=== PATIENT | male | born 1940 | race Caucasian/White ===

== ENCOUNTER 2016-07-24 05:49 | Day surgery (SDC) | payer MEDICARE, OTHER ==
[2016-07-24] VITALS (29 sets, daily range): BP systolic 132–187; BP diastolic 64–90; PULSE 16–117; RESP 6–22; TEMP 97–98.1; O2SAT 94–100; Ht 180.3 cm; Wt 104.5 kg
[~2016-07-24] VITALS: Ht 180.3 cm; Wt 104.5 kg
[~2016-07-24 05:49] MED LIST: ALCL15CR TOP; AMLO2.5T PO; AMOX500C2 PO; LOSA100T44 PO; SAW450CA4 PO; WARF3TAB6 PO
--- OUTSIDE RECORDS SUMMARY | 2016-07-24 05:54 | XMS REPORT | Summary of Care ---
Author Author Noé Hayward M.D. Organization Unknown Address [address] [place], [place] [id number] Phone Unavailable Care Team Providers Care Litigation Claim Representative Name Role Phone David Hayward M.D. Unavailable Unavailable Temi Mario, Patrizia Unavailable Unavailable Noé Hayward PP Unavailable Unavailable Unavailable Functional Status Functional Status Health Issues* Name Dates Details Functional status health issues are not documented Status: Cognitive Status Health Issues* Name Dates Details Cognitive status health issues are not documented Status: Problems Name Dates Details Pulmonary embolism (415.19, I26.99) Status: Active Chronic night sweats (780.8, R61) Status: Active Hyperlipidemia (272.4, E78.5) Status: Active Anticoagulant long-term use (V58.61, Z79.01) Status: Active Seborrheic keratosis (702.19, L82.1) Status: Active Seborrheic dermatitis (690.10, L21.9) Status: Active Former smoker (V15.82, Z87.891) Status: Active Congestive heart failure (428.0, I50.9) Status: Active Medications Name Dates Details Warfarin Sodium 3 MG Oral Tablet one tablet tue,thur,sat,sun along with 5 mg tablet Quantity: 51 Noé Hayward M.D.* Started 10-Dec-2007 ActiveWarfarin Sodium 5 MG Oral Tablet 8 MG MON,WED,FRI 7 MG ALL OTHER DAYS * Quantity: 90 Refills: 3 Noé Hayward M.D.* Started 10-Dec-2007 ActiveWarfarin Sodium 2 MG Oral Tablet take 1 tablet mon,wed,fri along with 5 mg tablet * Quantity: 39 Refills: 5 Noé Hayward M.D.* Started 31-Dec-2013 ActiveAlclometasone Dipropionate 0.05 % External Cream APPLY SPARINGLY TO AREAS ON FACE AND ON CHEST TWICE DAILY TIL CLEARS AND THEN USE NEEDED * Quantity: 1 Refills: 1 Patric Membreno M.D.* Started 3-Oct-2014 [id number] GM Tube Lisinopril 20 MG Oral Tablet take one tablet by mouth every day * Quantity: 90 Refills: 4 Noé Hayward M.D.* Started 16-Aug-2015 Active Allergies and Adverse Reactions Name Dates Details Penicillins Status: Active Past Medical History Name Dates Details History of Pre-procedural examination (V72.84, Z01.818) Status: Resolved Procedures Procedure Dates Details PROTIME PANEL 7000 Ordered:16-Aug-2015 Immunization Name Dates Details Immunizations not documented Social History Name Dates Details Smoking Status* Former smoker Vital Signs Date Test Result Details 31-Aug-2015 10:25 BP Systolic 142 mm[Hg] Status: BP Diastolic 70 mm[Hg] Status: Heart Rate 109 /min Status: Weight 230 lb Status: O2 SAT 95 % Status: Body Mass Index Calculated 31.19 kg/m2 Status: Body Surface Area Calculated 2.26 m2 Status: 16-Aug-2015 08:55 BP Systolic 184 mm[Hg] Status: BP Diastolic 82 mm[Hg] Status: Heart Rate 112 /min Status: Weight 232 lb Status: O2 SAT 95 % Status: Body Mass Index Calculated 31.47 kg/m2 Status: Body Surface Area Calculated 2.27 m2 Status: Results Date Description Value Details 12-Aug-2015 08:19 CBC w/ Auto Diff 7150 Comments: Items were attached to this order: Extra Tube Fastin hours WBC 6.2 K/uL (Better) Range: 4.5-11.0 RBC 4.63 mil/uL (Better) Range: 4.20-5.40 HGB 14.5 g/dL (Better) Range: 14.0-18.0 HCT 43.5 % (Better) Range: 42.0-53.0 MCV 93.9 fL (Better) Range: 80.0-99.0 MCH 31.3 pg (Better) Range: 27.3-32.5 MCHC 33.3 % (Better) Range: 32.0-36.0 RDW 13.2 % (Better) Range: 11.6-14.8 PLATELETS 231 K/uL (Better) Range: 150-400 MPV 6.9 fL (Better) Range: 6.0-11.0 %NEUTRO 55.2 % (Better) Range: 37.0-80.0 %LYMPHS 32.6 % (Better) Range: 13.0-50.0 %MONO 5.6 % (Better) Range: 0.0-12.0 %EOS 3.4 % (Better) Range: 0.0-7.0 %BASO 0.4 % (Better) Range: 0.0-2.5 %MELISSA 2.7 % (Better) Range: 0.0-5.0 NEUTRO 3.4 K/uL (Better) Range: 2.0-6.9 LYMPHS 2.0 K/uL (Better) Range: 0.6-3.4 MONOS 0.4 K/uL (Better) Range: 0.0-0.9 EOS 0.2 K/uL (Better) Range: 0.0-0.7 BASO 0.0 K/uL (Better) Range: 0.0-0.2 08:28 Comprehensive Metabolic Panel 1212 Comments: Items were attached to this order: Extra Tube Fastin hours SODIUM 140 mmol/L (Better) Range: 133-144 POTASSIUM 4.1 mmol/L (Better) Range: 3.5-5.1 CHLORIDE 105 mmol/L (Better) Range: 98-110 CARBON DIOXIDE 26.0 mmol/L (Better) Range: 23.0-33.0 ANION GAP 9 mmol/L (Better) Range: 6-16 BUN 14 mg/dL (Better) Range: 7-18 CREATININE, SERUM 0.86 mg/dL (Better) Range: 0.70-1.30 Comments: Please note new reference ranges effective 2014.----- BUN:CREATININE RATIO 16 (Better) EST GFR, >60 ml/min (Better) Range: >60 EST GFR, NON-AFR SALV[place]OREAN >60 ml/min (Better) Range: >60 Comments: EST GFR is reported in ml/min per 1.73 m2 of body surface area. For -Belarusian, please multiple result by 1.2.----- GLUCOSE 97 mg/dL (Better) Range: 70-100 ALK PHOSPHATASE 69 U/L (Better) Range: 46-116 TOTAL BILIRUBIN 0.30 mg/dL (Better) Range: 0.20-1.00 AST 18 U/L (Better) Range: 8-35 ALT 26 U/L (Better) Range: 16-63 Comments: Please note new reference ranges. Effective 07/08/2014.----- ALBUMIN 3.5 g/dL (Better) Range: 3.4-5.0 TOTAL PROTEIN 6.9 g/dL (Better) Range: 6.4-8.2 A/G RATIO 1.0 units (Better) Range: 1.0-1.8 CALCIUM 8.6 mg/dL (Better) Range: 8.5-10.1 08:28 LIPID PROFILE 1184 Comments: Items were attached to this order: Extra Tube Fastin hours CHOLESTEROL 228 mg/dL (Above high threshold) Range: <200 TRIGLYCERIDES 121 mg/dL (Better) Range: 30-200 HDL Cholesterol 40 mg/dL (Better) Range: >39 NON HDL CHOLESTEROL 188 (Better) CARDIAC RSK FACTOR 5.7 units (Above high threshold) Range: 4.4-5.0 LDL - CALCULATED 164 mg/dL (Above high threshold) Range: 0-130 16-Aug-2015 10:43 XRay CHEST-PA & LAT Comments: Exam Date: 08/16/2015 09 :46Dictation Date: 08/16/2015 10:43 X CHEST PA & LAT (Better) 10:47 PROTIME PANEL 7000 PROTIME 31.1 secs (Above high threshold) Range: 12.0-14.9 INR 2.97 (Better) 10:54 BNP 3103 BNP 9.2 pg/mL (Better) Range: 0.0-100.0 Plan of Care Planned Observations* Name Dates Details Planned Goals not documented Goal Planned Encounters* Appointment; Provider: Noé Hayward On 06-Mar-2016 10:30 * Appointment; Provider: Patric Membreno On 07-Feb-2016 08:30 Instructions * Instructions not documented Encounters Appointment; Noé Hayward Encounter Diagnosis: Problem not documented On 31-Aug-2015 10:30 Appointment; Noé Hayward Encounter Diagnosis: Problem not documented On 16-Aug-2015 09:00 Appointment; Patric Membreno Encounter Diagnosis: Problem not documented On 01-Feb-2015 08:30 Appointment; Vish Pettit Encounter Diagnosis: Problem not documented On 31-Dec-2014 10:00 Appointment; Tejal Alvarenga Encounter Diagnosis: Problem not documented On 31-Dec-2014 09:30 Appointment; Noé Hayward Encounter Diagnosis: Problem not documented On 14-Dec-2014 09:15 Appointment; Noé Hayward Encounter Diagnosis: Problem not documented On 03-Sep-2014 09:15 Appointment; Patric Membreno Encounter Diagnosis: Problem not documented On 28-Jan-2014 11:30 Appointment; Noé Hayward Encounter Diagnosis: Problem not documented On 28-Jan-2014 09:15 Appointment; Rachelle Sanchez Encounter Diagnosis: Problem not documented On 08-Dec-2013 13:15 Appointment; Noé Hayward Encounter Diagnosis: Problem not documented On 18-Sep-2013 14:45
--- OUTSIDE RECORDS SUMMARY | 2016-07-24 05:54 | XMS REPORT | Summary of Care ---
Author Author Noé Hayward M.D. Organization Unknown Address [address] [place], [place] [id number] Phone Unavailable Care Team Providers Care Ballast Regulator Operator Name Role Phone David Hayward M.D. Unavailable Unavailable Patrizia Membreno M.D. Unavailable Unavailable Noé Hayward PP Unavailable Unavailable Unavailable Functional Status Functional Status Health Issues* Name Dates Details Functional status health issues are not documented Status: Cognitive Status Health Issues* Name Dates Details Cognitive status health issues are not documented Status: Problems Name Dates Details Pain in wrist joint (719.43, M25.539) Status: Active Pulmonary embolism (415.19, I26.99) Status: Active Encounter for general health examination (V70.0, Z00.00) Status: Active Chronic night sweats (780.8, R61) Status: Active Pain in joint of left knee (719.46, M25.562) Status: Active Pre-procedural examination (V72.84, Z01.818) Status: Active Preop examination (V72.84, Z01.818) Status: Active Seborrheic keratosis (702.19, L82.1) Status: Active Seborrheic dermatitis (690.10, L21.9) Status: Active Hyperlipidemia (272.4, E78.5) Status: Active Anticoagulant long-term use (V58.61, Z79.01) Status: Active Fever (780.60, R50.9) Status: Active Excessive sweating (780.8, R61) Status: Active Medications Name Dates Details Coumadin 3 MG Oral Tablet Noé Hayward M.D.* Started 10-Dec-2007 ActiveCoumadin 5 MG Oral Tablet * Refills: 0 Noé Hayward M.D.* Started 10-Dec-2007 ActiveWarfarin Sodium 1 MG Oral Tablet TAKE DIRECTED. * Quantity: 90 Refills: 3 Noé Hayward M.D.* Started 31-Dec-2013 ActiveAlclometasone Dipropionate 0.05 % External Cream APPLY SPARINGLY TO AREAS ON FACE AND ON CHEST TWICE DAILY TIL CLEARS AND THEN USE NEEDED * Quantity: 1 Refills: 1 Patric Membreno M.D.* Started 29-Jan-2014 [id number] GM Tube Allergies and Adverse Reactions Name Dates Details Penicillins Status: Active Procedures Procedure Dates Details PROTIME PANEL 7000 Ordered: Immunization Name Dates Details Immunizations not documented Social History Name Dates Details Smoking Status* Former smoker Vital Signs Date Test Result Details No Known Vitals to report Results Date Description Value Details 09:41 PROTIME PANEL 7000 PROTIME 23.4 secs (Above high threshold) Range: 12.0-14.9 INR 2.13 (Better) Plan of Care Planned Observations* Name Dates Details Planned Goals not documented Goal Planned Encounters* Appointment; Provider: Patric Membreno On 01-Feb-2015 08:30 * Appointment; Provider: Noé aHyward On 14-Dec-2014 09:15 Instructions * Instructions not documented Encounters Appointment; Noé Hayward Encounter Diagnosis: Problem not documented On 03-Sep-2014 09:15 Appointment; Patric Membreno Encounter Diagnosis: Problem not documented On 28-Jan-2014 11:30 Appointment; Noé Hayward Encounter Diagnosis: Problem not documented On 28-Jan-2014 09:15 Appointment; Rachelle Sanchez Encounter Diagnosis: Problem not documented On 08-Dec-2013 13:15 Appointment; Noé Hayward Encounter Diagnosis: Problem not documented On 18-Sep-2013 14:45 Appointment; Noé Hayward Encounter Diagnosis: Problem not documented On 20-Aug-2013 09:15 Appointment; Law Newberry Encounter Diagnosis: Problem not documented On 29-Jul-2013 11:00 Appointment; Noé Hayward Encounter Diagnosis: Problem not documented On 10-Feb-2013 09:30
--- OUTSIDE RECORDS SUMMARY | 2016-07-24 05:54 | XMS REPORT | Summary of Care ---
Author Author Noé Hayward M.D. Organization Unknown Address [address] [place], [place] [id number] Phone Unavailable Care Team Providers Care Fx Artist Name Role Phone David Hayward M.D. Unavailable [...] Status: Active Hyperlipidemia (272.4, E78.5) Status: Active Fever (780.60, R50.9) Status: Active Excessive sweating (780.8, R61) Status: Active Encounter for screening colonoscopy (V76.51, Z12.11) Status: Active Anticoagulant long-term use (V58.61, Z79.01) Status: Active Medications Name Dates Details Coumadin [...] Refills: 1 Patric Membreno M.D.* Started 29-Jan-2014 [id number] GM Tube Allergies and Adverse Reactions Name Dates Details Penicillins Status: Active Procedures Procedure Dates Details Colonoscopy- Screening or Dx Pendin14-Dec-2014 Immunization Name Dates Details Immunizations not documented Social History Name Dates Details Smoking Status* Former smoker Vital Signs Date Test Result Details 14-Dec-2014 09:00 BP Systolic 134 mm[Hg] Status: BP Diastolic 86 mm[Hg] Status: Heart Rate 98 /min Status: Weight 228.5 lb Status: O2 SAT 94 % Status: Body Mass Index Calculated 30.99 kg/m2 Status: Body Surface Area Calculated 2.25 m2 Status: Results Date Description Value Details 13-Dec-2014 08:22 CBC w/ Auto Diff 7150 Comments: Fastin hours WBC 8.0 K/uL (Better) Range: 4.5-11.0 RBC 4.80 mil/uL (Better) Range: 4.20-5.40 HGB 14.8 g/dL (Better) Range: 14.0-18.0 HCT 43.8 % (Better) Range: 42.0-53.0 MCV 91.3 fL (Better) Range: 80.0-99.0 MCH 30.9 pg (Better) Range: 27.3-32.5 MCHC 33.9 % (Better) Range: 32.0-36.0 RDW 13.2 % (Better) Range: 11.6-14.8 PLATELETS 200 K/uL (Better) Range: 150-400 MPV 7.9 fL (Better) Range: 6.0-11.0 %NEUTRO 51.8 % (Better) Range: 37.0-80.0 %LYMPHS 33.1 % (Better) Range: 13.0-50.0 %MONO 7.2 % (Better) Range: 0.0-12.0 %EOS 4.4 % (Better) Range: 0.0-7.0 %BASO 0.9 % (Better) Range: 0.0-2.5 %MELISSA 2.7 % (Better) Range: 0.0-5.0 NEUTRO 4.1 K/uL (Better) Range: 2.0-6.9 LYMPHS 2.7 K/uL (Better) Range: 0.6-3.4 MONOS 0.6 K/uL (Better) Range: 0.0-0.9 EOS 0.4 K/uL (Better) Range: 0.0-0.7 BASO 0.1 K/uL (Better) Range: 0.0-0.2 08:44 PROTIME PANEL 7000 Comments: Fastin hours PROTIME 24.4 secs (Above high threshold) Range: 12.0-14.9 INR 2.24 (Better) 08:53 LIPID PROFILE 1184 Comments: Fastin hours CHOLESTEROL 211 mg/dL (Above high threshold) Range: <200 TRIGLYCERIDES 101 mg/dL (Better) Range: 30-200 HDL Cholesterol 38 mg/dL (Below low threshold) Range: >39 NON HDL CHOLESTEROL 173 (Better) CARDIAC RSK FACTOR 5.6 units (Above high threshold) Range: 4.4-5.0 LDL - CALCULATED 153 mg/dL (Above high threshold) Range: 0-130 08:53 Comprehensive Metabolic Panel 1212 Comments: Fastin hours SODIUM 142 mmol/L (Better) Range: 133-144 POTASSIUM 4.1 mmol/L (Better) Range: 3.5-5.1 CHLORIDE 105 mmol/L (Better) Range: 98-110 CARBON DIOXIDE 26.3 mmol/L (Better) Range: 23.0-33.0 ANION GAP 11 mmol/L (Better) Range: 6-16 BUN 21 mg/dL (Above high threshold) Range: 7-18 CREATININE, SERUM 0.90 mg/dL (Better) Range: 0.70-1.30 Comments: Please note new reference ranges effective 2014.----- BUN:CREATININE RATIO 23 (Better) EST GFR, >60 ml/min (Better) Range: >60 EST GFR, NON-AFR CROATIAN >60 ml/min (Better) Range: >60 Comments: EST GFR is reported in ml/min per 1.73 m2 of body surface area. For -Kyrgyz, please multiple result by 1.2.----- GLUCOSE 97 mg/dL (Better) Range: 70-100 ALK PHOSPHATASE 66 U/L (Better) Range: 46-116 TOTAL BILIRUBIN 0.40 mg/dL (Better) Range: 0.20-1.00 AST 19 U/L (Better) Range: 8-35 ALT 31 U/L (Better) Range: 16-63 Comments: Please note new reference ranges. Effective 07/08/2014.----- ALBUMIN 3.6 g/dL (Better) Range: 3.4-5.0 TOTAL PROTEIN 6.7 g/dL (Better) Range: 6.4-8.2 A/G RATIO 1.2 units (Better) Range: 1.0-1.8 CALCIUM 8.6 mg/dL (Better) Range: 8.5-10.1 09:12 VITAMIN B12 3606 Comments: Fastin hours VITAMIN B12 707 pg/mL (Better) Range: 211-911 Plan of Care Planned Observations* Name Dates Details Planned Goals not documented Goal Planned Encounters* Appointment; Provider: Noé Hayward On 16-Aug-2015 09:00 * Appointment; Provider: Patric Membreno On 01-Feb-2015 08:30 Instructions * Instructions not documented Encounters [...]
--- OUTSIDE RECORDS SUMMARY | 2016-07-24 05:54 | XMS REPORT | Summary of Care ---
Author Author Wilver Mario, [facility] Unknown Address [address] [facility] [place], [place] [phone] Phone Unavailable Care Team Providers Care Mobile Application Engineer Name Role Phone Mainor Mario, David Unavailable Unavailable Patrizia Membreno M.D. Unavailable Unavailable [...] Congestive heart failure (428.0, I50.9) Status: Active Dysphagia, unspecified (787.20, R13.10) Status: Active Allergic rhinitis (477.9, J30.9) Status: Active Preop examination (V72.84, Z01.818) Status: Active Hypertension (401.9, I10) Status: Active Medications Name Dates Details Warfarin [...] Refills: 1 Patric Membreno M.D.* Started 29-Jan-2014 [id number] GM Tube Losartan Potassium 100 MG Oral Tablet TAKE ONE AND ONE-HALF TABLETS DAILY (150MG) * Quantity: 135 Refills: 0 Noé Hayward M.D.* Started Active Allergies and Adverse Reactions Name Dates Details Penicillins Status: Active Past Medical History Name Dates Details History of Pre-procedural examination (V72.84, Z01.818) Status: Resolved Procedures Procedure Dates Details Upper Endoscopy ( EGD) Ordered: PROTIME PANEL 7000 Ordered: Immunization Name Dates Details Immunizations not documented Social History Name Dates Details Smoking Status* Former smoker Vital Signs Date Test Result Details 10:18 BP Systolic 142 mm[Hg] Status: BP Diastolic 76 mm[Hg] Status: Heart Rate 92 /min Status: Weight 230 lb Status: O2 SAT 95 % Status: Body Mass Index Calculated 31.19 kg/m2 Status: Body Surface Area Calculated 2.26 m2 Status: Results Date Description Value Details 09:10 ESOPHAGUS/ BARIUM SWALLOW Comments: Exam Date: 2015 08:43Dictation Date: 10/14/2015 09:10 XF ESOPHAGUS (Better) Plan of Care Planned Observations* Name Dates Details Planned Goals not documented Goal Planned Encounters* Appointment; Provider: Noé Hayward On 06-Mar-2016 10:30 * Appointment; Provider: Patric Membreno On 07-Feb-2016 08:30 * Appointment; Provider: Vish Pettit On 09:00 * Appointment; Provider: Tejal Alvarenga On 08:30 * Appointment; Provider: Schedule Radiology On 09:00 Instructions * Instructions not documented Encounters Appointment; Noé Hayward Encounter Diagnosis: Problem not documented On 10:30 Appointment; Noé Hayward Encounter Diagnosis: Problem [...]
--- OUTSIDE RECORDS SUMMARY | 2016-07-24 05:54 | XMS REPORT | Summary of Care ---
Author Author Noé Hayward M.D. Organization Unknown Address [address] [place], [place] [id number] Phone Unavailable Care Team Providers Care Tractor Drill Operator Name Role Phone David Hayward M.D. [...] Refills: 1 Patric Membreno M.D.* Started 3-Oct-2014 [id number] GM Tube Lisinopril 20 MG Oral Tablet [...] ml/min (Better) Range: >60 EST GFR, NON-AFR [place]IAN >60 ml/min (Better) Range: >60 Comments: EST GFR is reported in ml/min per 1.73 m2 of body surface area. For -Egyptian, please multiple result by 1.2.----- GLUCOSE 97 [...]
--- OUTSIDE RECORDS SUMMARY | 2016-07-24 05:54 | XMS REPORT | Summary of Care ---
Author Author Jessee Campbell Organization Unknown Address [address] [place], [place] [id number] Phone Unavailable Care Team Providers Care Boiler Control Room Operator Name Role Phone David Hayward M.D. Unavailable Unavailable Jessee Campbell Unavailable Unavailable Patrizia Membreno M.D. Unavailable Unavailable Noé Hayward Unavailable Unavailable Unavailable Functional Status Name Dates Details Functional status health issues are not documented Status: Name Dates Details Cognitive status health issues [...] Congestive heart failure (428.0, I50.9) Status: Active Allergic rhinitis (477.9, J30.9) Status: Active Preop examination (V72.84, Z01.818) Status: Active Hypertension (401.9, I10) Status: Active Dysphagia, unspecified (787.20, R13.10) Status: Active Medications Name Dates Details Warfarin Sodium 3 MG Oral Tablet one tablet tue,thur,sat,sun along with 5 mg tablet Quantity: 51 Crater M.D., Noé A * Start 10-Dec-2007 Active Warfarin Sodium 5 MG Oral Tablet 8 MG MON,WED,FRI 7 MG ALL OTHER DAYS * Quantity: 90 Refills: 3 Crater M.D., Noé A * Start 10-Dec-2007 Active Warfarin Sodium 2 MG Oral Tablet take 1 tablet mon,wed,fri along with 5 mg tablet * Quantity: 39 Refills: 5 Crater M.D., Noé A * Start 31-Dec-2013 Active Alclometasone Dipropionate 0.05 % External Cream APPLY SPARINGLY TO AREAS ON FACE AND ON CHEST TWICE DAILY TIL CLEARS AND THEN USE NEEDED * Quantity: 1 Refills: 1 Patric Membreno M.D. Start 29-Jan-2014 Active 45 GM Tube Losartan Potassium 100 MG Oral Tablet TAKE ONE AND ONE-HALF TABLETS DAILY (150MG) * Quantity: 135 Refills: 0 Noé Hayward M.D. Start Active Allergies and Adverse Reactions Name Dates Details Penicillins (Allergy) Status: Active Past Medical History Name Dates Details History of Pre-procedural examination (V72.84, Z01.818) Status: Resolved Procedures Procedure Dates Details Procedures not documented Immunization Name Dates Details Immunizations not documented Family History Name Dates Details No pertinent family history Status: Active Social History Name Dates Details - Status: Name Dates Details Former smoker Vital Signs Date Test Result Details 10:12 BP Systolic 133 mm[Hg] Status: Comments: Location: ; Position: BP Diastolic 70 mm[Hg] Status: Comments: Location: ; Position: Heart Rate 76 /min Status: Comments: Location: ; Physical Findings 18 Status: Comments: Respiration Height 72 in Status: Weight 225 lb Status: Physical Findings 96 Status: Comments: O2 Saturation Body Mass Index Calculated 30.52 kg/m2 Status: Body Surface Area Calculated 2.24 m2 Status: Results Date Description Value Details Results not documented Plan of Care Name Dates Details Planned Observations Planned Goals not documented Planned Encounters Appointment; Provider: Noé Hayward M.D. On 06-Mar-2016 10:30 Appointment; Provider: Patric Membreno M.D. On 07-Feb-2016 08:30 Instructions Name Dates Details Instructions not documented Encounters Appointment; Vish Pettit M.D. Encounter Diagnosis: Problem not documented On 09:00 Appointment; Tejal Alvarenga Encounter Diagnosis: Problem not documented On 08:30 Appointment; Noé Hayward M.D. Encounter Diagnosis: Problem not documented On 10:30 Appointment; Noé Hayward M.D. Encounter Diagnosis: Problem not documented On 31-Aug-2015 10:30 Appointment; Noé Hayward M.D. Encounter Diagnosis: Problem not documented On 16-Aug-2015 09:00 Appointment; Patric Membreno M.D. Encounter Diagnosis: Problem not documented On 01-Feb-2015 08:30 Appointment; Vish Pettit M.D. Encounter Diagnosis: Problem not documented On 31-Dec-2014 10:00 Appointment; Tejal Alvarenga Encounter Diagnosis: Problem not documented On 31-Dec-2014 09:30 Appointment; Noé Hayward M.D. Encounter Diagnosis: Problem not documented On 14-Dec-2014 09:15 Appointment; Noé Hayward M.D. Encounter Diagnosis: Problem not documented On 03-Sep-2014 09:15 Appointment; Patric Membreno M.D. Encounter Diagnosis: Problem not documented On 28-Jan-2014 11:30 Appointment; Noé Hayward M.D. Encounter Diagnosis: Problem not documented On 28-Jan-2014 09:15 Appointment; Rachelle Sanchez R.N. Encounter Diagnosis: Problem not documented On 08-Dec-2013 13:15
--- OUTSIDE RECORDS SUMMARY | 2016-07-24 05:54 | XMS REPORT | Summary of Care ---
Author Author Chaz Adrian M.D. Unknown Address [address] [place] [address] [place] [address] Phone Unavailable Care Team Providers Care Manager Trust Name Role Phone David Hayward M.D. Unavailable Unavailable Chaz Adrian M.D. Unavailable Unavailable Sanam Buckner Unavailable Unavailable Patrizia Membreno M.D. Unavailable Unavailable Noé Hayward Unavailable Unavailable Unavailable Functional Status Name Dates Details Functional status health issues are not documented Status: Name Dates Details Cognitive status health issues are not documented Status: Problems Name Dates Details Pulmonary embolism (415.19, I26.99) Status: Active Chronic night sweats (780.8, R61) Status: Active Hyperlipidemia (272.4, E78.5) Status: Active Seborrheic keratosis (702.19, L82.1) Status: Active Former smoker (V15.82, Z87.891) Status: Active Allergic rhinitis (477.9, J30.9) Status: Active Dysphagia, unspecified (787.20, R13.10) Status: Active Congestive heart failure (428.0, I50.9) Status: Active Chest congestion (786.9, R09.89) Status: Active Hypertension (401.9, I10) Status: Active Seborrheic dermatitis (690.10, L21.9) Status: Active 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 Quantity: 90 Crater M.D.Noé * Start 10-Dec-2007 Active Amoxicillin 500 MG Oral Capsule TAKE 4 CAPSULES 1 HOUR PRIOR TO DENTAL APPOINTMENT. * Quantity: 12 Refills: 0 Crater M.D.Noé * Start 24-Jan-2009 Active Warfarin Sodium 2 MG Oral Tablet Take 1 tablet daily * Quantity: 90 Refills: 1 Crater M.D., Noé A * Start 31-Dec-2013 Active Alclometasone Dipropionate 0.05 % External Cream APPLY SPARINGLY TO AREAS ON FACE AND ON CHEST TWICE DAILY TIL CLEARS AND THEN USE NEEDED * Quantity: 1 Refills: 1 Temi MarioPatric * Start 29-Jan-2014 Active 45 GM Tube Losartan Potassium 100 MG Oral Tablet take one tablet by mouth every day * Quantity: 90 Refills: 2 Noé Hayward M.D. * Start Active AmLODIPine Besylate 2.5 MG Oral Tablet ONE TABLET BY MOUTH EVERY DAY * Quantity: 90 Refills: 0 Noé Hayward M.D. * Start 06-Jun-2016 Active [place] Oral Capsule * Refills: 0 * Start 14-Jun-2016 Active Hydrocortisone 2.5 % External Lotion APPLY SPARINGLY TO AFFECTED AREA(S) TWICE DAILY * Quantity: 1 Refills: 3 Jonathan P.A.Sanam * Start 18-Jun-2016 Active 59 ML Bottle Ketoconazole 2 % External Shampoo APPLY TO SCALP 2-3 times weekly FOR 3-5 MINUTES AND RINSE. * Quantity: 1 Refills: 3 Jonathan P.A.ChayoSanam * Start 18-Jun-2016 Active 120 ML Bottle Allergies and Adverse Reactions Name Dates Details Penicillins (Allergy) Status: Active Past Medical History Name Dates Details History of Pre-procedural examination (V72.84, Z01.818) Status: Resolved Procedures Procedure Dates Details History of Excision Of Ankle Proliferative Bone History of Pulmonary Artery Embolectomy History of Knee Surgery Left History of Rotator Cuff Repair PROTIME PANEL 7000 Ordered: 15-Jun-2016 CYTOLOGY - URINE 4444 Ordered: 28-Jun-2016 Immunization Name Dates Details Immunizations not documented Family History Name Dates Details No pertinent family history Status: Active Social History Name Dates Details - Status: Name Dates Details Former smoker Vital Signs Date Test Result Details 14-Jun-2016 16:21 BP Systolic 140 mm[Hg] Status: Comments: Location: ; Position: BP Diastolic 86 mm[Hg] Status: Comments: Location: ; Position: Heart Rate 105 /min Status: Comments: Location: ; 06-Jun-2016 14:36 BP Systolic 148 mm[Hg] Status: Comments: Location: ; Position: BP Diastolic 76 mm[Hg] Status: Comments: Location: ; Position: Heart Rate 110 /min Status: Comments: Location: ; Weight 230 lb Status: Physical Findings 95 Status: Comments: O2 Saturation Body Mass Index Calculated 31.19 kg/m2 Status: Body Surface Area Calculated 2.26 m2 Status: Results Date Description Value Details 07-Jun-2016 13:37 PROTIME PANEL 7000 PROTIME 30.1 secs (Above high threshold) Range: 12.0-14.9 INR 3.01 14-Jun-2016 16:07 PROTIME PANEL 7000 PROTIME 27.2 secs (Above high threshold) Range: 12.0-14.9 INR 2.64 Plan of Care Name Dates Details Planned Observations Planned Goals not documented Planned Encounters Appointment; Provider: Jarad Villanueva M.D. On 06-Dec-2016 09:00 Appointment; Provider: Noé Hayward M.D. On 21-Aug-2016 09:00 Appointment; Provider: Chaz Adrian M.D. On 19-Jul-2016 09:45 Interventions Provided Labs/Procedures/Imaging* CYTOLOGY - URINE 4444; To be Done: 28 Jun 2016 Instructions Name Dates Details Instructions not documented Encounters Appointment; Sanam Castillo P.A. Encounter Diagnosis: Problem not documented On 18-Jun-2016 13:30 Appointment; Chaz Adrian M.D. Encounter Diagnosis: Problem not documented On 14-Jun-2016 16:15 Appointment; Noé Hayward M.D. Encounter Diagnosis: Problem not documented On 06-Jun-2016 14:45 Appointment; Noé Hayward M.D. Encounter Diagnosis: Problem not documented On 24-May-2016 10:45 Appointment; Kyle Reyna D.O. Encounter Diagnosis: Problem not documented On 26-Apr-2016 09:20 Appointment; Noé Hayward M.D. Encounter Diagnosis: Problem not documented On 10-Jan-2016 13:00 Appointment; Jessee Khan P.A. Encounter Diagnosis: Problem not documented On 10:30 Appointment; Vish Pettit M.D. Encounter Diagnosis: Problem [...] Problem not documented On 31-Dec-2014 10:00 Appointment; Lyle, Tejal Encounter Diagnosis: Problem not documented On 31-Dec-2014 09:30 Appointment; Noé Hayward M.D. Encounter Diagnosis: Problem not documented On 14-Dec-2014 09:15 Appointment; Noé Hayward M.D. Encounter Diagnosis: Problem not documented On 03-Sep-2014 09:15
--- OUTSIDE RECORDS SUMMARY | 2016-07-24 05:54 | XMS REPORT | Summary of Care ---
Author Author Noé Hayward M.D. Organization Unknown Address [address] [place], [place] [id number] Phone Unavailable Care Team Providers Care Forging Machine Operator Name Role Phone David Hayward M.D. [...] Refills: 1 Patric Membreno M.D.* Started 3-Oct-2014 [id number] GM Tube Lisinopril 20 MG Oral Tablet [...] ml/min (Better) Range: >60 EST GFR, NON-AFR [place] >60 ml/min (Better) Range: >60 Comments: EST GFR is reported in ml/min per 1.73 m2 of body surface area. For -Citizen Of [place], please multiple result by 1.2.----- GLUCOSE 97 [...]
--- OUTSIDE RECORDS SUMMARY | 2016-07-24 05:55 | XMS REPORT | Summary of Care ---
Author Author Chaz Adrian M.D. Unknown Address [address] [place] [address] [place] [address] Phone Unavailable Care Team Providers Care Tuck Pointer Helper Name Role Phone David Hayward M.D. Unavailable Unavailable Sanam Buckner Unavailable Unavailable Patrizia Membreno M.D. Unavailable Unavailable Patrizia Lou M.D. Unavailable Unavailable Noé Hayward Unavailable Unavailable Unavailable Unavailable Functional Status Name Dates [...] Anticoagulant long-term use (V58.61, Z79.01) Status: Active Preop examination (V72.84, Z01.818) Status: Active Burning with urination (788.1, R30.0) Status: Active Medications Name Dates Details Warfarin Sodium 5 MG Oral Tablet TAKE 1 TABLET DAILY DIRECTED. Quantity: 90 Crater M.D., Noé A * Start 10-Dec-2007 Active Amoxicillin 500 MG Oral Capsule TAKE 4 CAPSULES 1 HOUR PRIOR TO DENTAL APPOINTMENT. * Quantity: 12 Refills: 0 Crater M.D., Noé A * Start 24-Jan-2009 Active Warfarin Sodium 2 MG Oral Tablet Take 1 tablet daily * Quantity: 90 Refills: 1 Noé Hayward M.D. * Start 31-Dec-2013 Active Alclometasone Dipropionate 0.05 % External Cream APPLY SPARINGLY TO AREAS ON FACE AND ON CHEST TWICE DAILY TIL CLEARS AND THEN USE NEEDED * Quantity: 1 Refills: 1 Patric Membreno M.D. * Start 29-Jan-2014 Active 45 GM Tube AmLODIPine Besylate 2.5 MG Oral Tablet ONE TABLET BY MOUTH EVERY DAY * Quantity: 90 Refills: 0 Noé Hayward M.D. * Start 06-Jun-2016 Active Hydrocortisone 2.5 % External Lotion APPLY SPARINGLY TO AFFECTED AREA(S) TWICE DAILY * Quantity: 1 Refills: 3 Sanam Buckner * Start 18-Jun-2016 Active 59 ML Bottle Ketoconazole 2 % External Shampoo APPLY TO SCALP 2-3 times weekly FOR 3-5 MINUTES AND RINSE. * Quantity: 1 Refills: 3 Sanam Buckner * Start 18-Jun-2016 Active 120 ML Bottle Sulfamethoxazole-Trimethoprim 800-160 MG Oral Tablet Take 1 tablet twice daily * Quantity: 14 Refills: 0 Av Lou M.D. Start 30-Jun-2016 End 07-Jul-2016 Active Phenazopyridine HCl - 200 MG Oral Tablet TAKE 1 TABLET EVERY 8 HOURS NEEDED. FOR PAINFUL URINATION * Quantity: 6 Refills: 0 Av Lou M.D. Start 30-Jun-2016 Active [place] Oral Capsule * Refills: 0 * Start 14-Jun-2016 Active Losartan Potassium 100 MG Oral Tablet take one tablet by mouth every day * Quantity: 90 Refills: 2 Noé Hayward M.D. Start Active Allergies and Adverse Reactions Name Dates Details Penicillins (Allergy) Status: Active Past Medical History Name Dates Details History of Pre-procedural examination (V72.84, Z01.818) Status: Resolved Procedures Procedure Dates Details History of Excision Of Ankle Proliferative Bone History of Pulmonary Artery Embolectomy History of Knee Surgery Left History of Rotator Cuff Repair ECG/ EKG Preop Pendin29-Jun-2016 PROTIME PANEL 7000 Ordered: 15-Jun-2016 CBC w/ Auto Diff 7150 Ordered: 29-Jun-2016 Comprehensive Metabolic Panel 1212 Ordered: 29-Jun-2016 Urinalysis, Reflex to Microscopic or Culture PRN [id number] Ordered: 29-Jun-2016 XRay CHEST-PA & LAT Ordered: 29-Jun-2016 Immunization Name Dates Details Immunizations not documented Family History Name Dates Details No pertinent family history Status: Active Social History Name Dates Details - Status: Name Dates Details Former smoker Vital Signs Date Test Result Details 30-Jun-2016 09:15 BP Systolic 179 mm[Hg] Status: Comments: Location: ; Position: BP Diastolic 87 mm[Hg] Status: Comments: Location: ; Position: Temperature 98.1 f Status: Heart Rate 104 /min Status: Comments: Location: ; Height 71 in Status: Weight 232 lb Status: Physical Findings 97 Status: Comments: O2 Saturation Body Mass Index Calculated 32.36 kg/m2 Status: Body Surface Area Calculated 2.25 m2 Status: 14-Jun-2016 16:21 BP Systolic 140 mm[Hg] Status: [...] (Above high threshold) Range: 12.0-14.9 INR 2.64 28-Jun-2016 12:06 CYTOLOGY - URINE 4444 CYTOLOGY Specimen referred to [facility]. Report to follow. 30-Jun-2016 09:14 Urinalysis, Reflex to Microscopic or Culture PRN 8005 pH 7.0 Range: 5.0-7.5 SP GRAVITY 1.015 Range: 1.010-1.030 APPEARANCE CLEAR Range: Clear COLOR YELLOW Range: Straw-Yellow PROTEIN NEGATIVE mg/dL Range: Negative-Trace GLUCOSE NEGATIVE mg/dL Range: Negative KETONE NEGATIVE mg/dL Range: Negative BILIRUB NEGATIVE Range: Negative BLOOD NEGATIVE Range: Negative UROBIL 0.2 EU/dL Range: 0.2-1.0 NITRITE NEGATIVE Range: Negative LEUK NEGATIVE Range: Negative Plan of Care Name Dates Details Planned Observations Planned Goals not documented Planned Encounters Appointment; Provider: Jarad Vilalnueva M.D. On 06-Dec-2016 09:00 Appointment; Provider: Noé Hayward M.D. On 21-Aug-2016 09:00 Appointment; Provider: Chaz Adrian M.D. On 19-Jul-2016 09:45 Appointment; Provider: Noé Hayward M.D. On 16-Jul-2016 14:15 Instructions Name Dates Details Instructions not documented Encounters Appointment; Av Lou M.D. Encounter Diagnosis: Problem not documented On 30-Jun-2016 08:05 Appointment; Chaz Adrian M.D. Encounter Diagnosis: Problem not documented On 28-Jun-2016 10:00 Appointment; Sanam Castillo P.A. Encounter Diagnosis: Problem [...]
--- OUTSIDE RECORDS SUMMARY | 2016-07-24 05:55 | XMS REPORT | Summary of Care ---
Author Author Noé Hayward M.D. Unknown Address [address] [place], [place] [id number] Phone Unavailable Care Team Providers Care Manager Of Hospital Name Role Phone David Hayward M.D. Unavailable [...] Active Chest congestion (786.9, R09.89) Status: Active Cough (786.2, R05) Status: Active Hypertension (401.9, I10) Status: Active Medications Name Dates Details Warfarin Sodium 5 MG Oral Tablet TAKE 1 TABLET DAILY DIRECTED. Quantity: 90 Crater M.D., Noé Hernandez * Start 10-Dec-2007 Active Amoxicillin 500 MG Oral Capsule TAKE 4 CAPSULES 1 HOUR PRIOR TO DENTAL APPOINTMENT. * Quantity: 12 Refills: 0 Crater M.D.Noé * Start 24-Jan-2009 Active Warfarin Sodium 2 MG Oral Tablet Take 1 tablet daily * Quantity: 90 Refills: 1 Crater M.D., Noé Hernandez * Start 31-Dec-2013 Active Alclometasone Dipropionate 0.05 % External Cream APPLY SPARINGLY TO AREAS ON FACE AND ON CHEST TWICE DAILY TIL CLEARS AND THEN USE NEEDED * Quantity: 1 Refills: 1 Temi Mario, Patric Acharya * Start 29-Jan-2014 Active 45 GM Tube Losartan Potassium 100 MG Oral Tablet take one tablet by mouth every day * Quantity: 90 Refills: 2 Mainor Mario Oné A * Start Active AmLODIPine Besylate 2.5 MG Oral Tablet ONE TABLET BY MOUTH EVERY DAY * Quantity: 90 Refills: 0 Mainor Mario, Noé A * Start 06-Jun-2016 Active Allergies and Adverse Reactions Name Dates [...] smoker Vital Signs Date Test Result Details 06-Jun-2016 14:36 BP Systolic 148 mm[Hg] Status: Comments: Location: ; Position: BP Diastolic 76 mm[Hg] Status: Comments: Location: ; Position: Heart Rate 110 /min Status: Comments: Location: ; Weight 230 lb Status: Physical Findings 95 Status: Comments: O2 Saturation Body Mass Index Calculated 31.19 kg/m2 Status: Body Surface Area Calculated 2.26 m2 Status: 24-May-2016 10:48 BP Systolic 144 mm[Hg] Status: Comments: Location: ; Position: BP Diastolic 82 mm[Hg] Status: Comments: Location: ; Position: Heart Rate 112 /min Status: Comments: Location: ; Weight 228.2 lb Status: Physical Findings 96 Status: Comments: O2 Saturation Body Mass Index Calculated 30.95 kg/m2 Status: Body Surface Area Calculated 2.25 m2 Status: Results Date Description Value Details 08-May-2016 14:26 PROTIME PANEL 7000 PROTIME 26.1 secs (Above high threshold) Range: 12.0-14.9 INR 2.51 07-Jun-2016 13:37 PROTIME PANEL 7000 PROTIME 30.1 secs (Above high threshold) Range: 12.0-14.9 INR 3.01 Plan of Care Name Dates Details Planned Observations Planned Goals not documented Planned Encounters Appointment; Provider: Jarad Villanueva M.D. On 06-Dec-2016 09:00 Appointment; Provider: Noé Hayward M.D. On 08-Aug-2016 10:00 Appointment; Provider: Chaz Adrian M.D. On 14-Jun-2016 16:15 Interventions Provided Labs/Procedures/Imaging* PROTIME PANEL 7000; Done: Jun 07 2016 1:28PM Instructions Name Dates Details Instructions not documented Encounters Appointment; Kyle Reyna D.O. Encounter Diagnosis: Problem not documented On 26-Apr-2016 09:20 Appointment; Noé Hayward M.D. Encounter Diagnosis: Problem not documented On 10-Jan-2016 13:00 Appointment; Jessee Khan P.A. Encounter Diagnosis: Problem not documented On 10:30 Appointment; Vish Pettit M.D. Encounter Diagnosis: Problem not documented On 09:00 Appointment; [facility] Encounter Diagnosis: Problem not documented On 08:30 [...] Problem not documented On 31-Dec-2014 10:00 Appointment; [facility] Encounter Diagnosis: Problem not documented On 31-Dec-2014 09:30 Appointment; Noé Hayward M.D. Encounter Diagnosis: Problem not documented On 14-Dec-2014 09:15 Appointment; Noé Hayward M.D. Encounter Diagnosis: Problem not documented On 03-Sep-2014 09:15
--- OUTSIDE RECORDS SUMMARY | 2016-07-24 05:55 | XMS REPORT | Summary of Care ---
Author Author Noé Hayward M.D. Unknown Address [address] [place], [place] [id number] Phone Unavailable Care Team Providers Care Thermal Molder Name Role Phone David Hayward M.D. Unavailable [...] Active Allergic rhinitis (477.9, J30.9) Status: Active Hypertension (401.9, I10) Status: Active Dysphagia, unspecified (787.20, R13.10) Status: Active Congestive heart failure (428.0, I50.9) Status: Active Preop examination (V72.84, Z01.818) Status: Active Medications Name Dates Details Warfarin Sodium 5 MG Oral Tablet 8 MG MON,WED,FRI 7 MG ALL OTHER DAYS Quantity: 90 Mainor Mario, Noé Hernandez * Start 10-Dec-2007 Active Warfarin Sodium 2 MG Oral Tablet take 1 tablet mon,wed,fri along with 5 mg tablet * Quantity: 39 Refills: 5 Crater Elenita.Noé [place] * Start 31-Dec-2013 Active Alclometasone Dipropionate 0.05 % External Cream APPLY SPARINGLY TO AREAS ON FACE AND ON CHEST TWICE DAILY TIL CLEARS AND THEN USE NEEDED * Quantity: 1 Refills: 1 Patric Membreno M.D. Start 29-Jan-2014 Active 45 GM Tube Losartan Potassium 100 MG Oral Tablet take one tablet by mouth every day * Quantity: 90 Refills: 2 Mainor Mario, Noé Vinson Start Active Warfarin Sodium 3 MG Oral Tablet one tablet tue,thur,sat,sun along with 5 mg tablet * Quantity: 51 Refills: 3 Mainor Mario, Noé Hernandez * Start 10-Dec-2007 Active Allergies and Adverse Reactions Name Dates Details Penicillins (Allergy) Status: Active Past Medical History Name Dates Details History of Pre-procedural examination (V72.84, Z01.818) Status: Resolved Procedures Procedure Dates Details PROTIME PANEL 7000 Ordered: 02-Mar-2016 Immunization Name Dates Details Immunizations not documented Family History Name Dates Details No pertinent family history Status: Active Social History Name Dates Details - Status: Name Dates Details Former smoker Vital Signs Date Test Result Details No Known Vitals to report Results Date Description Value Details 20-Feb-2016 11:02 PROTIME PANEL 7000 PROTIME 34.0 secs (Above high threshold) Range: 12.0-14.9 INR 3.33 29-Feb-2016 16:04 PROTIME PANEL 7000 PROTIME 36.1 secs (Above high threshold) Range: 12.0-14.9 INR 3.59 Plan of Care Name Dates Details Planned Observations Planned Goals not documented Planned Encounters Appointment; Provider: Noé Hayward M.D. On 08-Aug-2016 10:00 Interventions Provided Labs/Procedures/Imaging* PROTIME PANEL 7000; To be Done: 02 Mar 2016 Instructions Name Dates Details Instructions not documented Encounters Appointment; Noé Hayward M.D. Encounter Diagnosis: Problem [...]
--- OUTSIDE RECORDS SUMMARY | 2016-07-24 05:55 | XMS REPORT | Summary of Care ---
Author Author Noé Hayward M.D. Organization Unknown Address [address] [place], [place] [id number] Phone Unavailable Care Team Providers Care Senior Web Applications Developer Name Role Phone David Hayward M.D. Unavailable [...] TAKE 1 TABLET DAILY DIRECTED. Quantity: 90 Mainor Mario, Noé Hernandez * Start 10-Dec-2007 Active Amoxicillin 500 MG Oral Capsule TAKE 4 CAPSULES 1 HOUR PRIOR TO DENTAL APPOINTMENT. * Quantity: 12 Refills: 0 Noé Hayward M.D. * Start 24-Jan-2009 Active Warfarin Sodium 2 [...] Hayward M.D. * Start 06-Jun-2016 Active [place] Oral Capsule * Refills: 0 * Start [...] * Start 18-Jun-2016 Active 120 ML Bottle Phenazopyridine HCl - 200 MG Oral Tablet TAKE 1 TABLET EVERY 8 HOURS NEEDED. FOR PAINFUL URINATION * Quantity: 6 Refills: 0 Av Lou M.D. * Start 30-Jun-2016 Active Allergies and Adverse Reactions Name Dates Details Penicillins (Allergy) Status: Active Past Medical History Name Dates Details History of Pre-procedural examination (V72.84, Z01.818) Status: Resolved Procedures Procedure Dates Details History of Excision Of Ankle Proliferative Bone History of Pulmonary Artery Embolectomy History of Knee Surgery Left History of Rotator Cuff Repair ECG/ EKG Preop Ordered: 29-Jun-2016 Comprehensive Metabolic Panel 1212 Ordered: [...] Location: ; Position: Temperature 98.1 f Status: Comments: Method: Heart Rate 104 /min Status: Comments: Location: ; Height 71 in Status: Weight 232 lb Status: Physical Findings 97 Status: Comments: O2 Saturation Body Mass Index Calculated 32.36 kg/m2 Status: Body Surface Area Calculated 2.25 m2 Status: Results Date Description Value Details 28-Jun-2016 12:06 CYTOLOGY - URINE 4444 CYTOLOGY Specimen referred to [facility]. Report to follow. 30-Jun-2016 09:14 Urinalysis, [...] NEGATIVE Range: Negative LEUK NEGATIVE Range: Negative 16-Jul-2016 13:28 CBC w/ Auto Diff 7150 WBC 7.9 K/uL Range: 4.5-11.0 RBC 4.37 mil/uL Range: 4.20-5.40 HGB 13.9 g/dL (Below low threshold) Range: 14.0-18.0 HCT 41.1 % (Below low threshold) Range: 42.0-53.0 MCV 94.0 fL Range: 80.0-99.0 MCH 31.8 pg Range: 27.3-32.5 MCHC 33.8 % Range: 32.0-36.0 RDW 14.8 % Range: 11.6-14.8 PLATELETS 230 K/uL Range: 150-400 MPV 7.4 fL Range: 6.0-11.0 %NEUTRO 59.5 % Range: 37.0-80.0 %LYMPHS 29.5 % Range: 13.0-50.0 %MONO 6.6 % Range: 0.0-12.0 %EOS 1.6 % Range: 0.0-7.0 %BASO 0.6 % Range: 0.0-2.5 %MELISSA 2.2 % Range: 0.0-5.0 NEUTRO 4.7 K/uL Range: 2.0-6.9 LYMPHS 2.3 K/uL Range: 0.6-3.4 MONOS 0.5 K/uL Range: 0.0-0.9 EOS 0.1 K/uL Range: 0.0-0.7 BASO 0.0 K/uL Range: 0.0-0.2 13:30 PROTIME PANEL 7000 PROTIME 21.5 secs (Above high threshold) Range: 12.0-14.9 INR 1.95 Plan of Care Name Dates Details Planned Observations Planned Goals not documented Planned Encounters Appointment; Provider: Jarad Villanueva M.D. On 06-Dec-2016 09:00 Appointment; Provider: Noé Hayward M.D. On 21-Aug-2016 09:00 Appointment; Provider: Chaz Adrian M.D. On 19-Jul-2016 09:45 Appointment; Provider: Noé Hayward M.D. On 16-Jul-2016 14:15 Interventions Provided Labs/Procedures/Imaging* PROTIME PANEL 7000; Done: Jul 16 2016 1:20PM Instructions Name Dates Details Instructions not documented Encounters Appointment; Chaz Adrian M.D. Encounter Diagnosis: Problem [...] Diagnosis: Problem not documented On 10:30 Appointment; iVsh Pettit M.D. Encounter Diagnosis: Problem not documented [...]
--- OUTSIDE RECORDS SUMMARY | 2016-07-24 05:55 | XMS REPORT | Summary of Care ---
Author Author Noé Hayward M.D. Organization Unknown Address [address] [place], [place] [id number] Phone Unavailable Care Team Providers Care Generation Mechanic Helper Name Role Phone David Hayward M.D. [...] Status: Active Fever (780.60, R50.9) Status: Active Anticoagulant long-term use (V58.61, Z79.01) [...] Refills: 1 Patric Membreno M.D.* Started 29-Jan-2014 [id number] GM Tube Lisinopril 20 MG Oral Tablet take one tablet by mouth every day * Quantity: 30 Refills: 4 Noé Hayward M.D.* Started 16-Aug-2015 ActiveAzithromycin 250 MG Oral Tablet TAKE 2 TABLETS ON DAY 1 THEN TAKE 1 TABLET A DAY FOR 4 DAYS. * Quantity: 1 Refills: 0 Noé Hayward M.D.* Started 16-Aug-2015 Active6 Tablet Disp Pack Allergies and Adverse Reactions Name Dates Details Penicillins Status: Active Past Medical History Name Dates Details History of Pre-procedural examination (V72.84, Z01.818) Status: Resolved Procedures Procedure Dates Details PROTIME PANEL 7000 Ordered:16-Aug-2015 BNP 3103 Ordered:16-Aug-2015 XRay CHEST-PA & LAT Ordered:16-Aug-2015 Immunization Name Dates Details Immunizations not documented Social History Name Dates Details Smoking Status* Former smoker Vital Signs Date Test Result Details 16-Aug-2015 08:55 BP Systolic 184 mm[Hg] Status: [...] ml/min (Better) Range: >60 EST GFR, NON-AFR STATELESS >60 ml/min (Better) Range: >60 Comments: EST GFR is reported in ml/min per 1.73 m2 of body surface area. For -[place], please multiple result by 1.2.----- GLUCOSE 97 [...] 164 mg/dL (Above high threshold) Range: 0-130 Plan of Care Planned Observations* Name Dates Details Planned Goals not documented Goal Planned Encounters* Appointment; Provider: Patric Membreno On 07-Feb-2016 08:30 * Appointment; Provider: Noé Hayward On 31-Aug-2015 10:30 Instructions * Instructions not documented Encounters Appointment; [...]
--- OUTSIDE RECORDS SUMMARY | 2016-07-24 05:55 | XMS REPORT | Summary of Care ---
Author Author Noé Hayward M.D. Organization Unknown Address [address] [place], [place] [id number] Phone Unavailable Care Team Providers Care Direct Sales Consultant Name Role Phone David Hayward M.D. Unavailable [...] of left knee (719.46, M25.562) Status: Active Preop examination (V72.84, Z01.818) Status: Active Hyperlipidemia (272.4, E78.5) Status: Active Fever (780.60, R50.9) Status: Active Excessive sweating (780.8, R61) Status: Active Anticoagulant long-term use (V58.61, Z79.01) Status: Active Pre-procedural examination (V72.84, Z01.818) Status: Active Encounter for screening colonoscopy (V76.51, Z12.11) Status: Active Seborrheic keratosis (702.19, L82.1) Status: Active Seborrheic dermatitis (690.10, L21.9) Status: Active Medications Name Dates Details Warfarin Sodium 3 MG Oral Tablet TAKE DIRECTED. Quantity: 90 Noé Hayward M.D.* Started 10-Dec-2007 ActiveWarfarin Sodium 5 MG Oral Tablet TAKE DIRECTED. * Quantity: 90 Refills: 3 Noé Hayward M.D.* Started 10-Dec-2007 ActiveWarfarin Sodium 2 MG Oral Tablet TAKE DIRECTED. * Quantity: 90 Refills: 3 Noé Hayward M.D.* Started 31-Dec-2013 ActiveAlclometasone Dipropionate 0.05 % External Cream APPLY SPARINGLY TO AREAS ON FACE AND ON CHEST TWICE DAILY TIL CLEARS AND THEN USE NEEDED * Quantity: 1 Refills: 1 Patric Membreno M.D.* Started 29-Jan-2014 [id number] GM Tube Allergies and Adverse Reactions Name Dates Details Penicillins Status: Active Past Medical History Name Dates Details History of Pre-procedural examination (V72.84, Z01.818) Status: Resolved Procedures Procedure Dates Details PROTIME PANEL 7000 Ordered:01-Feb-2015 PROTIME PANEL 7000 Ordered:01-Feb-2015 Immunization Name Dates Details Immunizations not documented Social History Name Dates Details Smoking Status* Former smoker Vital Signs Date Test Result Details No Known Vitals to report Results Date Description Value Details Results not documented Plan of Care Planned Observations* Name Dates Details Planned Goals not documented Goal Planned Encounters* Appointment; Provider: Patric Membreno On 07-Feb-2016 08:30 * Appointment; Provider: Noé Hayward On 16-Aug-2015 09:00 Instructions * Instructions not documented Encounters Appointment; Patric Membreno Encounter Diagnosis: Problem not [...] Problem not documented On 20-Aug-2013 09:15 Appointment; aLw [place] Encounter Diagnosis: Problem not documented On 29-Jul-2013 11:00 Appointment; Noé Hayward Encounter Diagnosis: Problem not documented On 10-Feb-2013 09:30
--- OUTSIDE RECORDS SUMMARY | 2016-07-24 05:55 | XMS REPORT | Summary of Care ---
Author Author Sanam Buckner Organization Unknown Address [address] [place], [place] [id number] Phone Unavailable Care Team Providers Care Lifts And Cranes Inspector Name Role Phone David Hayward M.D. Unavailable [...] Status: Active Hypertension (401.9, I10) Status: Active BPH with obstruction/lower urinary tract symptoms (600.01, N40.1) Status: Active Seborrheic dermatitis (690.10, L21.9) Status: Active Medications Name Dates Details Warfarin Sodium 5 MG Oral Tablet TAKE 1 TABLET DAILY DIRECTED. Quantity: 90 Crater M.D., Noé Hernandez * Start 10-Dec-2007 Active Amoxicillin 500 MG Oral Capsule TAKE 4 CAPSULES 1 HOUR PRIOR TO DENTAL APPOINTMENT. * Quantity: 12 Refills: 0 Crater M.D., Noé Hernandez * Start 24-Jan-2009 Active Warfarin Sodium 2 MG Oral Tablet Take 1 tablet daily * Quantity: 90 Refills: 1 Crater M.D.Noé Start 31-Dec-2013 Active Alclometasone Dipropionate 0.05 % [...] Quantity: 90 Refills: 0 Noé Hayward M.D. A * Start 06-Jun-2016 Active Saw [place] Oral Capsule * Refills: 0 * Start 14-Jun-2016 Active Hydrocortisone 2.5 % External Lotion APPLY SPARINGLY TO AFFECTED AREA(S) TWICE DAILY * Quantity: 1 Refills: 3 Jonathan Avitia.ASanam Gallo * Start 18-Jun-2016 Active 59 ML Bottle Ketoconazole 2 % External Shampoo APPLY TO SCALP 2-3 times weekly FOR 3-5 MINUTES AND RINSE. 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 On 28-Jun-2016 10:00 Interventions Provided Medication Changes* Hydrocortisone 2.5 % External Lotion - Start * Ketoconazole 2 % External Shampoo - Start Instructions Name Dates Details Instructions not documented [...]
--- OUTSIDE RECORDS SUMMARY | 2016-07-24 05:55 | XMS REPORT | Summary of Care ---
Author Author Noé Hayward M.D. Unknown Address [address] [place], [place] [phone] Phone Unavailable Care Team Providers Care Ui Programmer Name Role Phone David Hayward M.D. Unavailable [...] Active Preop examination (V72.84, Z01.818) Status: Active Acute non-recurrent sinusitis, unspecified location (461.9, J01.90) Status: Active Chest congestion (786.9, R09.89) Status: Active Cough (786.2, R05) Status: Active Medications Name Dates Details Warfarin Sodium 5 MG Oral Tablet TAKE 1 TABLET DAILY DIRECTED. Quantity: 90 Noé Hayward M.D. Start 10-Dec-2007 Active Warfarin Sodium 2 MG Oral Tablet Take 1 tablet daily * Quantity: 90 Refills: 1 Noé Hayward M.D. Start 31-Dec-2013 Active Alclometasone Dipropionate 0.05 % External Cream APPLY SPARINGLY TO AREAS ON FACE AND ON CHEST TWICE DAILY TIL CLEARS AND THEN USE NEEDED * Quantity: 1 Refills: 1 Temi Mario, Patric Acharya * Start 29-Jan-2014 Active 45 GM Tube Losartan Potassium 100 MG Oral Tablet take one tablet by mouth every day * Quantity: 90 Refills: 2 Mainor MarioNoé * Start Active Azithromycin 250 MG Oral Tablet TAKE 2 TABLETS ON DAY 1 THEN TAKE 1 TABLET A DAY FOR 4 DAYS. * Quantity: 1 Refills: 0 Mainor MarioNoé * Start 24-May-2016 Active 6 Tablet Box Medrol 4 MG Oral Tablet Therapy Pack TAKE MEDROL DOSEPAK DIRECTED PER PKG INSTRUCTION CARD. * Quantity: 1 Refills: 0 Mainor MarioNoé * Start 24-May-2016 Active 21 Tablet Therapy Pack Box Allergies and Adverse Reactions Name Dates Details Penicillins (Allergy) Status: Active Past Medical History Name Dates Details History of Pre-procedural examination (V72.84, Z01.818) Status: Resolved Procedures Procedure Dates Details PROTIME PANEL 7000 Ordered: 08-May-2016 Immunization Name Dates Details Immunizations not documented Family History Name Dates Details No pertinent family history Status: Active Social History Name Dates Details - Status: Name Dates Details Former smoker Vital Signs Date Test Result Details 24-May-2016 10:48 BP Systolic 144 mm[Hg] Status: Comments: Location: LUE; Position: Sitting BP Diastolic 82 mm[Hg] Status: Comments: Location: LUE; Position: Sitting Heart Rate 112 /min Status: Comments: Location: ; Weight 228.2 lb Status: Physical Findings 96 Status: Comments: O2 Saturation Body Mass Index Calculated 30.95 kg/m2 Status: Body Surface Area Calculated 2.25 m2 Status: 26-Apr-2016 09:45 BP Systolic 115 mm[Hg] Status: Comments: Location: ; Position: BP Diastolic 83 mm[Hg] Status: Comments: Location: ; Position: Temperature 99.7 f Status: Heart Rate 125 /min Status: Comments: Location: ; Physical Findings 16 Status: Comments: Respiration Physical Findings 96 Status: Comments: O2 Saturation Results Date Description Value Details 08-May-2016 14:26 PROTIME PANEL 7000 PROTIME 26.1 secs (Above high threshold) Range: 12.0-14.9 INR 2.51 Plan of Care Name Dates Details Planned Observations Planned Goals not documented Planned Encounters Appointment; Provider: Jarad Villanueva M.D. On 06-Dec-2016 09:00 Appointment; Provider: Noé Hayward M.D. On 08-Aug-2016 10:00 Appointment; Provider: Noé Hayward M.D. On 06-Jun-2016 14:45 Interventions Provided Medication Changes* Azithromycin 250 MG Oral Tablet - Start * Medrol 4 MG Oral Tablet Therapy Pack - Start Instructions Name Dates Details Instructions [...] not documented On 16-Aug-2015 09:00 Appointment; Patric Mmebreno M.D. Encounter Diagnosis: Problem not documented On 01-Feb-2015 08:30 Appointment; Vish Pettit M.D. Encounter Diagnosis: Problem not documented On 31-Dec-2014 10:00 Appointment; [facility] Encounter Diagnosis: Problem not documented On 31-Dec-2014 09:30 Appointment; Noé Hayward M.D. Encounter Diagnosis: Problem not documented On 14-Dec-2014 09:15 Appointment; Noé Hayward M.D. Encounter Diagnosis: Problem not documented On 03-Sep-2014 09:15
--- OUTSIDE RECORDS SUMMARY | 2016-07-24 05:55 | XMS REPORT | Summary of Care ---
Author Author Noé Hayward M.D. Organization Unknown Address [address] [place], [place] [phone] Phone Unavailable Care Team Providers Care Apartment Coordinator Name Role Phone David Hayward M.D. Unavailable [...] Refills: 1 Patric Membreno M.D.* Started 29-Jan-2014 [id number] GM Tube Allergies and Adverse Reactions Name Dates Details Penicillins Status: Active Procedures Procedure Dates Details PROTIME PANEL 7000 Ordered: LIPID PROFILE 1184 Ordered:06-Dec-2014 CBC w/ Auto Diff 7150 Ordered:06-Dec-2014 Comprehensive Metabolic Panel 1212 Ordered:06-Dec-2014 VITAMIN B12 3606 Ordered:06-Dec-2014 Immunization Name Dates Details Immunizations not documented Social History Name Dates Details Smoking Status* Former smoker Vital Signs Date Test Result Details No Known Vitals to report Results Date Description Value Details Results not documented Plan of Care Planned Observations* Name Dates Details Planned Goals not documented Goal Planned Encounters* Appointment; Provider: Patric Membreno On 01-Feb-2015 08:30 * Appointment; Provider: Noé Hayward On 14-Dec-2014 09:15 Instructions * Instructions not [...]
--- OUTSIDE RECORDS SUMMARY | 2016-07-24 05:55 | XMS REPORT | Summary of Care ---
Author Author Noé Hayward M.D. Organization Unknown Address [address] [place], [place] [phone] Phone Unavailable Care Team Providers Care Rivet Catcher Name Role Phone David Hayward M.D. Unavailable Unavailable Temi Mario, Patrizia Unavailable Unavailable Noé Hayward PP Unavailable Unavailable Unavailable Functional Status Functional Status Health Issues* Name Dates Details Functional status health issues are not documented Status: Cognitive Status Health Issues* Name Dates Details Cognitive status health issues are not documented Status: Problems Name Dates Details Fever (780.60, R50.9) Status: Active Pain in wrist joint (719.43, M25.539) Status: Active Pulmonary embolism (415.19, I26.99) Status: Active Encounter for general health examination (V70.0, Z00.00) Status: Active Hyperlipidemia (272.4, E78.5) Status: Active Chronic night sweats (780.8, R61) Status: Active Pain in joint of left knee (719.46, M25.562) Status: Active Pre-procedural examination (V72.84, Z01.818) Status: Active Preop examination (V72.84, Z01.818) Status: Active Anticoagulant long-term use (V58.61, Z79.01) Status: Active Seborrheic keratosis (702.19, L82.1) Status: Active Seborrheic dermatitis (690.10, L21.9) Status: Active Medications Name Dates Details Warfarin Sodium 1 MG Oral Tablet TAKE DIRECTED. Quantity: 90 Noé Hayward M.D.* Started 31-Dec-2013 ActiveAlclometasone Dipropionate 0.05 % External Cream APPLY SPARINGLY TO AREAS ON FACE AND ON CHEST TWICE DAILY TIL CLEARS AND THEN USE NEEDED * Quantity: 1 Refills: 1 Patric Membreno M.D.* Started 29-Jan-2014 [id number] GM Tube Coumadin 5 MG Oral Tablet * Refills: 0 Noé Hayward M.D.* Started 10-Dec-2007 ActiveCoumadin 3 MG Oral Tablet * Refills: 0 Noé Hayward M.D.* Started 10-Dec-2007 Active Allergies and Adverse Reactions Name Dates Details Penicillins Status: Active Procedures Procedure Dates Details PROTIME PANEL 7000 Ordered:27-Jan-2014 Immunization Name Dates Details Immunizations not documented Social History Name Dates Details Smoking Status* Former smoker Vital Signs Date Test Result Details 28-Jan-2014 09:16 BP Systolic 148 mm[Hg] Status: BP Diastolic 68 mm[Hg] Status: Heart Rate 73 /min Status: O2 SAT 97 % Status: Results Date Description Value Details 27-Jan-2014 09:58 CBC w/ Auto Diff 7150 WBC 7.5 K/uL (Better) Range: 4.5-11.0 RBC 4.82 mil/uL (Better) Range: 4.20-5.40 HGB 14.8 g/dL (Better) Range: 14.0-18.0 HCT 44.7 % (Better) Range: 42.0-53.0 MCV 92.7 fL (Better) Range: 80.0-99.0 MCH 30.7 pg (Better) Range: 27.3-32.5 MCHC 33.1 % (Better) Range: 32.0-36.0 RDW 13.6 % (Better) Range: 11.6-14.8 PLATELETS 199 K/uL (Better) Range: 150-400 MPV 7.9 fL (Better) Range: 6.0-11.0 %NEUTRO 62.5 % (Better) Range: 37.0-80.0 %LYMPHS 27.4 % (Better) Range: 13.0-50.0 %MONO 5.6 % (Better) Range: 0.0-12.0 %EOS 1.8 % (Better) Range: 0.0-7.0 %BASO 0.9 % (Better) Range: 0.0-2.5 %MELISSA 1.7 % (Better) Range: 0.0-5.0 NEUTRO 4.7 K/uL (Better) Range: 2.0-6.9 LYMPHS 2.1 K/uL (Better) Range: 0.6-3.4 MONOS 0.4 K/uL (Better) Range: 0.0-0.9 EOS 0.1 K/uL (Better) Range: 0.0-0.7 BASO 0.1 K/uL (Better) Range: 0.0-0.2 10:02 PROTIME PANEL 7000 PROTIME 22.9 secs (Above high threshold) Range: 12.0-14.9 INR 2.07 (Better) 10:20 Comprehensive Metabolic Panel 1212 SODIUM 140 mmol/L (Better) Range: 133-144 POTASSIUM 4.1 mmol/L (Better) Range: 3.5-5.1 CHLORIDE 105 mmol/L (Better) Range: 98-110 CARBON DIOXIDE 27.8 mmol/L (Better) Range: 23.0-33.0 ANION GAP 7 mmol/L (Better) Range: 6-16 BUN 18 mg/dL (Better) Range: 7-18 CREATININE, SERUM 0.75 mg/dL (Better) Range: 0.43-1.13 BUN:CREATININE RATIO 24 (Better) EST GFR, >60 ml/min (Better) Range: >60 EST GFR, NON-AFR WELSH >60 ml/min (Better) Range: >60 Comments: EST GFR is reported in ml/min per 1.73 m2 of body surface area. For -Indonesian, please multiple result by 1.2.----- GLUCOSE 115 mg/dL (Above high threshold) Range: 70-100 ALK PHOSPHATASE 82 U/L (Better) Range: 46-116 Comments: Please Note: New Reference Range effective 2013.----- TOTAL BILIRUBIN 0.50 mg/dL (Better) Range: 0.20-1.00 AST 19 U/L (Better) Range: 8-35 ALT 31 U/L (Better) Range: 12-78 ALBUMIN 3.7 g/dL (Better) Range: 3.4-5.0 TOTAL PROTEIN 7.3 g/dL (Better) Range: 6.4-8.2 A/G RATIO 1.0 units (Better) Range: 1.0-1.8 CALCIUM 9.1 mg/dL (Better) Range: 8.5-10.1 10:50 THYROID STIM. HORMONE 3602 THYROID STIM. HORMONE 0.705 uIU/mL (Better) Range: 0.550-4.780 Comments: \[id number]\No established reference ranges for infants and children < 2 years of ageNo established reference ranges for infants and children <2 years of age----- 10:50 PSA ( PROSTATE SPECIFIC ANTIGEN) 3100 PROSTATE SPECIFIC ANTIGEN 0.630 ng/mL (Better) Range: 0.000-4.000 Plan of Care Planned Observations* Name Dates Details Planned Goals not documented Goal Planned Encounters* Appointment; Provider: Patric Membreno On 01-Feb-2015 08:30 * Appointment; Provider: Noé Hayward On 03-Sep-2014 09:15 Instructions * Instructions not documented Encounters [...] Diagnosis: Problem not documented On 10-Feb-2013 09:30 Appointment; Noé Hayward Encounter Diagnosis: Problem not documented On 05-Sep-2012 14:00
--- OUTSIDE RECORDS SUMMARY | 2016-07-24 05:55 | XMS REPORT | Continuity of Care Document ---
Author Author [facility] Organization [facility] Address Unknown Phone Unavailable Allergies Medications Problems Procedures Results Encounters ACCT No. Visit Date/Time Discharge Status Pt. Type Provider Facility Loc./Unit Complaint [id number] 05/08/2016 13:00:00 [facility]
--- OUTSIDE RECORDS SUMMARY | 2016-07-24 05:56 | XMS REPORT | Summary of Care ---
Author Author Noé Hayward M.D. Unknown Address [address] [place], [place] [phone] Phone Unavailable Care Team Providers Care Well Logging Operator Mud Analysis Name Role Phone David Hayward M.D. Unavailable [...] Quantity: 39 Refills: 5 Crater M.D., Noé Hernandez * Start 31-Dec-2013 [...] m2 Status: Results Date Description Value Details 29-Nov-2015 09:08 PROTIME PANEL 7000 PROTIME 29.8 secs (Above high threshold) Range: 12.0-14.9 INR 2.82 Plan of Care Name Dates Details Planned Observations Planned Goals not documented Planned Encounters Appointment; Provider: Noé Hayward M.D. On 06-Mar-2016 10:30 Appointment; Provider: Patric Membreno M.D. On 07-Feb-2016 08:30 Interventions Provided Labs/Procedures/Imaging* PROTIME PANEL 7000; Done: Nov 29 2015 8:57AM Instructions Name Dates Details Instructions not documented Encounters Appointment; Jessee Khan P.A. Encounter Diagnosis: Problem [...]
--- OUTSIDE RECORDS SUMMARY | 2016-07-24 05:56 | XMS REPORT | Summary of Care ---
Author Author Jessee Campbell Unknown Address [address] [place], [place] [phone] Phone Unavailable Care Team Providers Care Supervisor Partial Denture Department Name Role Phone Mainor Mario, David Unavailable [...] Refills: 1 Patric Membreno M.D.* Started 29-Jan-2014 [id number] GM Tube Losartan Potassium 100 MG Oral [...] Dates Details Immunizations not documented Family History Mother* Name Dates Details No pertinent family history Status: Active Social History Name Dates Details Smoking Status* Former smoker Vital Signs Date Test Result Details 10:12 BP Systolic 133 mm[Hg] Status: BP Diastolic 70 mm[Hg] Status: Heart Rate 76 /min Status: Respiration Rate 18 /min Status: Height 72 in Status: Weight 225 lb Status: O2 SAT 96 % Status: Body Mass Index Calculated 30.52 kg/m2 Status: Body Surface Area Calculated 2.24 m2 Status: Results Date Description Value Details 09:10 ESOPHAGUS/ BARIUM SWALLOW Comments: Exam Date: 2015 08:43Dictation Date: 10/14/2015 09:10 XF ESOPHAGUS (Better) 07:55 PROTIME PANEL 7000 PROTIME 14.4 secs (Better) Range: 12.0-14.9 INR 1.13 (Better) Plan of Care Planned Observations* Name Dates Details Planned Goals not documented Goal Planned Encounters* Appointment; Provider: Noé Hayawrd On 06-Mar-2016 10:30 * Appointment; Provider: Patric Membreno On 07-Feb-2016 08:30 * Appointment; Provider: Schedule Radiology On 09:00 Instructions * Instructions not documented Encounters Appointment; Jessee Khan Encounter Diagnosis: Problem not documented On 10:30 Appointment; Vish Pettit Encounter Diagnosis: Problem not documented On 09:00 Appointment; Tejal Alvarenga Encounter Diagnosis: Problem not documented On 08:30 Appointment; Noé Hayward Encounter Diagnosis: Problem not [...]
--- OUTSIDE RECORDS SUMMARY | 2016-07-24 05:56 | XMS REPORT | Summary of Care ---
Author Author Wilver Mario, [facility] Unknown Address [address] [facility] [place], [place] [address] Phone Unavailable Care Team Providers Care House Mover Helper Name Role Phone Mainor Mario, David Unavailable [...] Refills: 1 Patric Membreno M.D.* Started 29-Jan-2014 [id number] GM Tube Losartan Potassium 100 MG Oral Tablet TAKE ONE AND ONE-HALF TABLETS DAILY (150MG) * Quantity: 135 Refills: 0 Noé Hayward M.D.* Started Active Allergies and Adverse Reactions Name Dates Details Penicillins Status: Active Past Medical History Name Dates Details History of Pre-procedural examination (V72.84, Z01.818) Status: Resolved Procedures Procedure Dates Details Upper Endoscopy ( EGD) Ordered: Immunization Name Dates Details Immunizations not [...] documented Goal Planned Encounters* Appointment; Provider: Noé Hyaward On 06-Mar-2016 10:30 * Appointment; Provider: Patric Membreno On 07-Feb-2016 08:30 * Appointment; Provider: Schedule Radiology On 09:00 Instructions * Instructions not documented Encounters Appointment; Vish Pettit Encounter Diagnosis: Problem not documented On 09:00 Appointment; Tejal Alvarenga Encounter Diagnosis: Problem not documented On 08:30 Appointment; Noé Hayward Encounter Diagnosis: Problem not documented On 10:30 Appointment; Noé Hawyard Encounter Diagnosis: Problem not documented On 31-Aug-2015 [...]
--- OUTSIDE RECORDS SUMMARY | 2016-07-24 05:56 | XMS REPORT | Summary of Care ---
Author Author Noé Hayward M.D. Organization Unknown Address [address] [place], [place] [phone] Phone Unavailable Care Team Providers Care Return To Vendor Name Role Phone David Hayward M.D. Unavailable [...] sinusitis, unspecified location (461.9, J01.90) Status: Active Medications Name Dates Details Warfarin [...] Procedure Dates Details PROTIME PANEL 7000 Ordered: 09-Apr-2016 Immunization Name Dates Details Immunizations not documented Family History Name Dates Details No pertinent family history Status: Active Social History Name Dates Details - Status: Name Dates Details Former smoker Vital Signs Date Test Result Details 26-Apr-2016 09:45 BP Systolic 115 mm[Hg] Status: Comments: Location: LUE; Position: Sitting BP Diastolic 83 mm[Hg] Status: Comments: Location: LUE; Position: Sitting Temperature 99.7 f Status: Comments: Method: Heart Rate 125 /min Status: Comments: Location: ; Physical Findings 16 Status: Comments: Respiration Physical Findings 96 Status: Comments: O2 Saturation Results Date Description Value Details Results not documented Plan of Care Name Dates Details Planned Observations PROTIME PANEL 7000 On 29-Apr-2016 Intent Planned Goals not documented Planned Encounters Appointment; Provider: Jarad Villanueva M.D. On 06-Dec-2016 09:00 Appointment; Provider: Noé Hayward M.D. On 08-Aug-2016 10:00 Instructions Name Dates Details Instructions not documented [...]
--- OUTSIDE RECORDS SUMMARY | 2016-07-24 05:56 | XMS REPORT | Summary of Care ---
Author Author Noé Hayward M.D. Organization Unknown Address [address] [place], [place] [phone] Phone Unavailable Care Team Providers Care Sheet Rock Layer Name Role Phone David Hayward M.D. Unavailable [...] L21.9) Status: Active Medications Name Dates Details Coumadin [...] Refills: 1 Patric Membreno M.D.* Started 29-Jan-2014 [id number] GM Tube Allergies and Adverse Reactions Name [...] ml/min (Better) Range: >60 EST GFR, NON-AFR SPANISH >60 ml/min (Better) Range: >60 Comments: EST GFR is reported in ml/min per 1.73 m2 of body surface area. For -Cymraes, please multiple result by 1.2.----- GLUCOSE 115 [...]
--- OUTSIDE RECORDS SUMMARY | 2016-07-24 05:56 | XMS REPORT | Summary of Care ---
Author Author Wilver Mario, [facility] Unknown Address [address] [facility] [place] [address] Phone Unavailable Care Team Providers Care Skid Road Worker Name Role Phone Mainor Mario, David Unavailable Unavailable Temi Mario, Patrizia Unavailable Unavailable [...] for screening colonoscopy (V76.51, Z12.11) Status: Active Medications Name Dates Details Coumadin [...] Refills: 1 Patric Membreno M.D.* Started 29-Jan-2014 [id number] GM Tube Allergies and Adverse Reactions Name Dates Details Penicillins Status: Active Past Medical History Name Dates Details History of Pre-procedural examination (V72.84, Z01.818) Status: Resolved Procedures Procedure Dates Details Colonoscopy- Screening or Dx Ordered:14-Dec-2014 Immunization Name Dates Details Immunizations not documented [...] ml/min (Better) Range: >60 EST GFR, NON-AFR [place]LAND[place] >60 ml/min (Better) Range: >60 Comments: EST GFR is reported in ml/min per 1.73 m2 of body surface area. For -Congolese, please multiple result by 1.2.----- GLUCOSE 97 [...] VITAMIN B12 707 pg/mL (Better) Range: 211-911 31-Dec-2014 08:47 PROTIME PANEL 7000 PROTIME 15.0 secs (Above high threshold) Range: 12.0-14.9 INR 1.19 (Better) Plan of Care Planned Observations* Name [...]
--- OUTSIDE RECORDS SUMMARY | 2016-07-24 05:56 | XMS REPORT | Summary of Care ---
Author Author Provider, Outside Organization Unknown Address Unknown Phone Unavailable Care Team Providers Care Nc Manager Name Role Phone Mainor Mario, David Unavailable [...] Active Former smoker (V15.82, Z87.891) Status: Active Medications Name Dates Details Warfarin [...] Refills: 1 Patric Membreno M.D.* Started 29-Jan-2014 [id number] GM Tube Allergies and Adverse Reactions Name [...] to report Results Date Description Value Details 12-Aug-2015 08:19 [...] ml/min (Better) Range: >60 EST GFR, NON-AFR ALGERIAN >60 ml/min (Better) Range: >60 Comments: EST [...] documented Goal Planned Encounters* Appointment; Provider: Patric Memberno On 07-Feb-2016 08:30 * Appointment; Provider: Noé [...]
--- OUTSIDE RECORDS SUMMARY | 2016-07-24 05:56 | XMS REPORT | Summary of Care ---
Author Author Noé Hayward M.D. Organization Unknown Address [address] [place], [place] [phone] Phone Unavailable Care Team Providers Care Comber Operator Name Role Phone David Hayward M.D. [...] DAILY DIRECTED. Quantity: 90 Noé Hayward M.D. * Start 10-Dec-2007 Active Warfarin Sodium 2 [...] 2 Mainor Mario, Noé Vinson Start Active Allergies and Adverse Reactions Name Dates Details Penicillins (Allergy) Status: Active Past Medical History Name Dates Details History of Pre-procedural examination (V72.84, Z01.818) Status: Resolved Procedures Procedure Dates Details PROTIME PANEL 7000 Ordered: 09-Mar-2016 Immunization Name Dates Details Immunizations not documented Family History Name Dates Details No pertinent family history Status: Active Social History Name Dates Details - Status: Name Dates Details Former smoker Vital Signs Date Test Result Details No Known Vitals to report Results Date Description Value Details Results not documented Plan of Care Name Dates Details Planned Observations PROTIME PANEL 7000 On 29-Mar-2016 Intent Planned Goals not documented Planned Encounters Appointment; Provider: Noé Hayward M.D. On 08-Aug-2016 10:00 Interventions Provided Medication Changes* Warfarin Sodium 2 MG Oral Tablet - Renew * Warfarin Sodium 5 MG Oral Tablet - Renew Instructions Name Dates Details Instructions not documented [...]
--- OUTSIDE RECORDS SUMMARY | 2016-07-24 05:56 | XMS REPORT | Summary of Care ---
Author Author Noé Hayward M.D. Organization Unknown Address [address] [place], [place] [id number] Phone Unavailable Care Team Providers Care Recordist Chief Name Role Phone David Hayward M.D. Unavailable [...] Active Seborrheic dermatitis (690.10, L21.9) Status: Active Pre-procedural examination (V72.84, Z01.818) Status: Active Medications Name Dates Details Coumadin [...] Refills: 1 Patric Membreno M.D.* Started 29-Jan-2014 [id number] GM Tube Allergies and Adverse Reactions Name [...] ml/min (Better) Range: >60 EST GFR, NON-AFR CITIZEN OF [place] >60 ml/min (Better) Range: >60 Comments: EST GFR is reported in ml/min per 1.73 m2 of body surface area. For -Ch[place]an, please multiple result by 1.2.----- GLUCOSE 115 [...]
--- OUTSIDE RECORDS SUMMARY | 2016-07-24 05:56 | XMS REPORT | Summary of Care ---
Author Author Noé Hawyard M.D. Unknown Address [address] [place], [place] [phone] Phone Unavailable Care Team Providers Care Job Counselor Name Role Phone Provider, Outside Unavailable Unavailable David Hayward M.D. Unavailable Unavailable Patrizia Membreno [...] with 5 mg tablet Quantity: 51 Crater Elenita.Fara., Noé A * Start 10-Dec-2007 Active Warfarin Sodium 5 MG Oral Tablet 8 MG MON,WED,FRI 7 MG ALL OTHER DAYS * Quantity: 90 Refills: 3 Mainor Mario, Noé A * Start 10-Dec-2007 Active Warfarin Sodium 2 MG Oral Tablet take 1 tablet mon,wed,fri along with 5 mg tablet * Quantity: 39 Refills: 5 Mainor Mario, Noé Hernandez * Start 31-Dec-2013 Active Alclometasone [...] Quantity: 90 Refills: 2 Mainor Mario, Noé Hernandez * Start Active Allergies and Adverse Reactions Name Dates Details Penicillins (Allergy) Status: Active Past Medical History Name Dates Details History of Pre-procedural examination (V72.84, Z01.818) Status: Resolved Procedures Procedure Dates Details PROTIME PANEL 7000 Ordered: 09-Jan-2016 PROTIME PANEL 7000 Ordered: 17-Feb-2016 Immunization Name Dates Details Immunizations not documented Family History Name Dates Details No pertinent family history Status: Active Social History Name Dates Details - Status: Name Dates Details Former smoker Vital Signs Date Test Result Details No Known Vitals to report Results Date Description Value Details Results not documented Plan of Care Name Dates Details Planned Observations PROTIME PANEL 7000 On 17-Feb-2016 Intent Planned Goals not documented Planned Encounters [...]
--- OUTSIDE RECORDS SUMMARY | 2016-07-24 05:56 | XMS REPORT | Summary of Care ---
Author Author Noé Hayward M.D. Organization Unknown Address [address] [place], [place] [phone] Phone Unavailable Care Team Providers Care Artists' Model Name Role Phone David Hayward M.D. Unavailable [...] Refills: 1 Patric Membreno M.D.* Started 29-Jan-2014 [id number] GM Tube Allergies and Adverse Reactions Name Dates Details Penicillins Status: Active Procedures Procedure Dates Details PROTIME PANEL 7000 Ordered:30-Jul-2014 Immunization Name Dates Details Immunizations not documented [...]
--- OUTSIDE RECORDS SUMMARY | 2016-07-24 05:57 | XMS REPORT | Summary of Care ---
Author Author Kyle Reyna D.O. Organization Unknown Address [address] [place], [place] [phone] Phone Unavailable Care Team Providers Care Commissioner Of Internal Revenue Name Role Phone David Hayward M.D. Unavailable Unavailable Scooby Reyna D.O. Unavailable Unavailable Patrizia Membreno M.D. Unavailable Unavailable [...] Refills: 2 Noé Hayward M.D. Start Active Doxycycline Monohydrate 100 MG Oral Capsule Take 1 capsule twice daily * Quantity: 14 Refills: 0 Reyna D.O., Kyle L * Start 26-Apr-2016 End 03-May-2016 Active Allergies and Adverse Reactions Name Dates [...] O2 Saturation Results Date Description Value Details 07-Apr-2016 10:03 PROTIME PANEL 7000 PROTIME 30.4 secs (Above high threshold) Range: 12.0-14.9 INR 2.89 Plan of Care Name Dates Details Planned Observations Planned Goals not documented Planned Encounters Appointment; Provider: Noé Hayward M.D. On 08-Aug-2016 10:00 Interventions Provided Medication Changes* Doxycycline Monohydrate 100 MG Oral Capsule - Start Instructions Name Dates Details Instructions [...]
--- OUTSIDE RECORDS SUMMARY | 2016-07-24 05:57 | XMS REPORT | Summary of Care ---
Author Author Jessee Hannah Organization Unknown Address [address] [place], [place] [phone] Phone Unavailable Care Team Providers Care Scroll Assembler Name Role Phone David Hayward M.D. Unavailable Unavailable Sanam Buckner Unavailable Unavailable Jessee Hannah Unavailable Unavailable Patrizia Membreno M.D. Unavailable Unavailable Noé Hayward Unavailable Unavailable Unavailable Unavailable Functional Status Name Dates Details Functional status health issues are not documented Status: Name Dates Details Cognitive status health issues are not documented Status: Problems Name Dates Details Pulmonary embolism (415.19, I26.99) Status: Active Chronic night sweats (780.8, R61) Status: Active Seborrheic keratosis (702.19, L82.1) Status: Active Former smoker (V15.82, Z87.891) Status: Active Allergic rhinitis (477.9, J30.9) Status: Active Dysphagia, unspecified (787.20, R13.10) Status: Active Congestive heart failure (428.0, I50.9) Status: Active Chest congestion (786.9, R09.89) Status: Active Seborrheic dermatitis (690.10, L21.9) Status: Active BPH with obstruction/lower urinary tract symptoms (600.01, N40.1) Status: Active Preop examination (V72.84, Z01.818) Status: Active Burning with urination (788.1, R30.0) Status: Active Anticoagulant long-term use (V58.61, Z79.01) Status: Active 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 Quantity: 90 Mainor Mario, Noé A * Start 10-Dec-2007 Active Amoxicillin [...] Hayward M.D. * Start 06-Jun-2016 Active Saw Eldridge Oral Capsule * Refills: 0 * Start 14-Jun-2016 Active Hydrocortisone 2.5 % External Lotion APPLY SPARINGLY TO AFFECTED AREA(S) TWICE DAILY * Quantity: 1 Refills: 3 Jonathan Avitia.David.Sanam * Start 18-Jun-2016 Active 59 ML Bottle Ketoconazole 2 % External Shampoo APPLY TO SCALP 2-3 times weekly FOR 3-5 MINUTES AND RINSE. * Quantity: 1 Refills: 3 Jonathan Avitia.Sanam Galan * Start 18-Jun-2016 Active 120 ML Bottle Warfarin Sodium 3 MG Oral Tablet TAKE 1 TABLET Daily as directed * Quantity: 30 Refills: 0 Noé Hayward M.D. Start 18-Jul-2016 Active Allergies and Adverse Reactions Name Dates Details Penicillins (Allergy) Status: Active Past Medical History Name Dates Details History of Pre-procedural examination (V72.84, Z01.818) Status: Resolved Procedures Procedure Dates Details History of Excision Of Ankle Proliferative Bone History of Pulmonary Artery Embolectomy History of Knee Surgery Left History of Rotator Cuff Repair CP Echo Ordered: 17-Jul-2016 PROTIME PANEL 7000 Ordered: 16-Jul-2016 Immunization Name Dates Details Immunizations not documented Family History Name Dates Details No pertinent family history Status: Active Social History Name Dates Details - Status: Name Dates Details Former smoker Vital Signs Date Test Result Details 17-Jul-2016 09:25 BP Systolic 102 mm[Hg] Status: Comments: Location: ; Position: BP Diastolic 56 mm[Hg] Status: Comments: Location: ; Position: Heart Rate 88 /min Status: Comments: Location: ; Weight 230 lb Status: Body Mass Index Calculated 32.08 kg/m2 Status: Body Surface Area Calculated 2.24 m2 Status: 16-Jul-2016 14:16 BP Systolic 134 mm[Hg] Status: Comments: Location: ; Position: BP Diastolic 82 mm[Hg] Status: Comments: Location: ; Position: Heart Rate 109 /min Status: Comments: Location: ; Weight 232 lb Status: Physical Findings 93 Status: Comments: O2 Saturation Body Mass Index Calculated 32.36 kg/m2 Status: Body Surface Area Calculated 2.25 m2 Status: 30-Jun-2016 09:15 BP Systolic 179 mm[Hg] Status: [...] - URINE 4444 CYTOLOGY Specimen referred to [facility]. Report to follow. 30-Jun-2016 09:14 Urinalysis, [...] (Above high threshold) Range: 12.0-14.9 INR 1.95 13:49 ECG/ EKG Preop Electro CardioGram 13:57 Comprehensive Metabolic Panel 1212 SODIUM 142 mmol/L Range: 133-144 POTASSIUM 4.0 mmol/L Range: 3.5-5.1 CHLORIDE 107 mmol/L Range: 98-110 CARBON DIOXIDE 28.3 mmol/L Range: 23.0-33.0 ANION GAP 7 mmol/L Range: 6-16 BUN 17 mg/dL Range: 7-18 CREATININE, SERUM 0.78 mg/dL Range: 0.70-1.30 BUN:CREATININE RATIO 22 EST GFR, >60 ml/min Range: >60 EST GFR, NON-AFR [place] >60 ml/min Range: >60 Comments: EST GFR is reported in ml/min per 1.73 m2 of body surface area. ----- GLUCOSE 121 mg/dL (Above high threshold) Range: 70-100 ALK PHOSPHATASE 64 U/L Range: 46-116 TOTAL BILIRUBIN 0.40 mg/dL Range: 0.20-1.00 AST 23 U/L Range: 8-35 ALT 28 U/L Range: 16-63 ALBUMIN 3.6 g/dL Range: 3.4-5.0 TOTAL PROTEIN 7.3 g/dL Range: 6.4-8.2 A/G RATIO 1.0 units Range: 1.0-1.8 CALCIUM 8.4 mg/dL (Below low threshold) Range: 8.5-10.1 14:01 Urinalysis, Reflex to Microscopic or Culture PRN 8005 pH 6.5 Range: 5.0-7.5 SP GRAVITY 1.020 Range: 1.010-1.030 APPEARANCE CLEAR Range: Clear COLOR YELLOW Range: Straw-Yellow PROTEIN NEGATIVE mg/dL Range: Negative-Trace GLUCOSE NEGATIVE mg/dL Range: Negative KETONE NEGATIVE mg/dL Range: Negative BILIRUB NEGATIVE Range: Negative BLOOD NEGATIVE Range: Negative UROBIL 1.0 EU/dL Range: 0.2-1.0 NITRITE NEGATIVE Range: Negative LEUK NEGATIVE Range: Negative 15:42 XRay CHEST-PA & LAT Comments: Exam Date: 07/16/2016 13:26Dictation Date: 07/16/2016 15:42 X CHEST PA & LAT Plan of Care Name Dates Details Planned Observations Planned Goals not documented Planned Encounters Appointment; Provider: Jarad Villanueva M.D. On 06-Dec-2016 09:00 Appointment; Provider: Chaz Adrian M.D. On 19-Jul-2016 09:45 Instructions Name Dates Details Instructions not documented Encounters Appointment; Noé Hayward M.D. Encounter Diagnosis: Problem not documented On 16-Jul-2016 14:15 Appointment; Av Lou M.D. Encounter Diagnosis: Problem [...] not documented On 01-Feb-2015 08:30 Appointment; Vish Pettti M.D. Encounter Diagnosis: Problem not documented On 31-Dec-2014 10:00 Appointment; [facility] Encounter Diagnosis: Problem not documented On 31-Dec-2014 09:30 Appointment; Noé Hayward M.D. Encounter Diagnosis: Problem not documented On 14-Dec-2014 09:15 Appointment; Noé Hayward M.D. Encounter Diagnosis: Problem not documented On 03-Sep-2014 09:15
--- OUTSIDE RECORDS SUMMARY | 2016-07-24 05:57 | XMS REPORT | Summary of Care ---
Author Author Noé Hayward M.D. Organization Unknown Address [address] [place], [place] [phone] Phone Unavailable Care Team Providers Care Blasting Machine Operator Name Role Phone David Hayward [...] Refills: 1 Patric Membreno M.D.* Started 29-Jan-2014 [id number] GM Tube Allergies and Adverse Reactions Name [...]
--- OUTSIDE RECORDS SUMMARY | 2016-07-24 05:57 | XMS REPORT | Summary of Care ---
Author Author Noé Hayward M.D. Organization Unknown Address [address] [place], [place] [phone] Phone Unavailable Care Team Providers Care Wheel Filler Name Role Phone David Hayward M.D. Unavailable [...] Refills: 1 Patric Membreno M.D.* Started 29-Jan-2014 [id number] GM Tube Allergies and Adverse Reactions Name Dates Details Penicillins Status: Active Past Medical History Name Dates Details History of Pre-procedural examination (V72.84, Z01.818) Status: Resolved Procedures Procedure Dates Details CBC w/ Auto Diff 7150 Ordered:08-Aug-2015 Comprehensive Metabolic Panel 1212 Ordered:08-Aug-2015 LIPID PROFILE 1184 Ordered:08-Aug-2015 Immunization Name Dates Details Immunizations not documented [...]
--- OUTSIDE RECORDS SUMMARY | 2016-07-24 05:57 | XMS REPORT | Summary of Care ---
Author Author Noé Hayward M.D. Organization Unknown Address [address] [place], [place] [phone] Phone Unavailable Care Team Providers Care Manager Wound Name Role Phone David Hayward M.D. Unavailable [...] 90 Noé Hayward M.D. Start 10-Dec-2007 Active Amoxicillin 500 MG Oral Capsule TAKE 4 CAPSULES 1 HOUR PRIOR TO DENTAL APPOINTMENT. * Quantity: 12 Refills: 0 Noé Hayward M.D. Start 24-Jan-2009 Active Alclometasone Dipropionate 0.05 % External Cream APPLY SPARINGLY TO AREAS ON FACE AND ON CHEST TWICE DAILY TIL CLEARS AND THEN USE NEEDED * Quantity: 1 Refills: 1 Patric Membreno M.D. Start 29-Jan-2014 Active 45 GM Tube Losartan Potassium 100 MG Oral Tablet take one tablet by mouth every day * Quantity: 90 Refills: 2 Mainor KwongSabinoFara., Noé Hernandez * Start Active AmLODIPine Besylate 2.5 MG Oral Tablet ONE TABLET BY MOUTH EVERY DAY * Quantity: 90 Refills: 0 Mainor KwongSaleem., Noé A * Start 06-Jun-2016 Active Warfarin Sodium 2 MG Oral Tablet Take 1 tablet daily * Quantity: 90 Refills: 1 Mainor KwongSaleem., Noé Hernandez * Start 31-Dec-2013 Active Allergies and Adverse Reactions Name Dates [...] Hayward M.D. On 08-Aug-2016 10:00 Appointment; Provider: Gretel Mcintosh On 18-Jun-2016 13:30 Interventions Provided Labs/Procedures/Imaging* PROTIME PANEL 7000; Done: Jun 14 2016 3:52PM Instructions Name Dates Details Instructions not documented [...] not documented On 31-Dec-2014 10:00 Appointment; [facility] Encounter Diagnosis: Problem not documented On 31-Dec-2014 09:30 Appointment; Noé Hayward M.D. Encounter Diagnosis: Problem not documented On 14-Dec-2014 09:15 Appointment; Noé Hayward M.D. Encounter Diagnosis: Problem not documented On 03-Sep-2014 09:15
--- OUTSIDE RECORDS SUMMARY | 2016-07-24 05:57 | XMS REPORT | Summary of Care ---
Author Author Noé Hayward M.D. Unknown Address [address] [place], [place] [phone] Phone Unavailable Care Team Providers Care Engineering Intern Name Role Phone David Hayward M.D. Unavailable [...] Quantity: 1 Refills: 1 Patric Membreno M.D. Patrizia * Start 29-Jan-2014 Active 45 GM Tube Losartan Potassium 100 MG Oral Tablet TAKE ONE AND ONE-HALF TABLETS DAILY (150MG) * Quantity: 135 Refills: 0 Noé Hayward M.D. Start Active Allergies and Adverse Reactions Name Dates Details Penicillins (Allergy) Status: Active Past Medical History Name Dates Details History of Pre-procedural examination (V72.84, Z01.818) Status: Resolved Procedures Procedure Dates Details ECG/ EKG Preop Ordered: 03-Jan-2016 CBC w/ Auto Diff 7150 Ordered: 03-Jan-2016 Comprehensive Metabolic Panel 1212 Ordered: 03-Jan-2016 Urinalysis, Reflex to Microscopic or Culture PRN 8005 Ordered: 03-Jan-2016 Immunization Name Dates Details Immunizations not documented Family History Name Dates Details No pertinent family history Status: Active Social History Name Dates Details - Status: Name Dates Details Former smoker Vital Signs Date Test Result Details No Known Vitals to report Results Date Description Value Details 06-Jan-2016 13:03 PROTIME PANEL 7000 PROTIME 30.8 secs (Above high threshold) Range: 12.0-14.9 INR 2.94 13:18 XRay CHEST-PA & LAT Comments: Exam Date: 01/06/2016 12:57Dictation Date: 01/06/2016 13:18 X CHEST PA & LAT Plan of Care Name Dates Details Planned Observations Planned Goals not documented Planned Encounters Appointment; Provider: Noé Hayward M.D. On 06-Mar-2016 10:30 Appointment; Provider: Noé Hayward M.D. On 10-Jan-2016 13:00 Interventions Provided Labs/Procedures/Imaging* CBC w/ Auto Diff 7150; To be Done: 03 Jan 2016 * Comprehensive Metabolic Panel 1212; To be Done: 03 Jan 2016 * Urinalysis, Reflex to Microscopic or Culture PRN 8005; To be Done: 03 Jan 2016 * PROTIME PANEL 7000; Done: Jan 06 2016 12:51PM * XRay CHEST-PA & LAT; Done: Jan 06 2016 1:18PM Instructions Name Dates Details Instructions not documented [...]
--- OUTSIDE RECORDS SUMMARY | 2016-07-24 05:57 | XMS REPORT | Summary of Care ---
Author Author Noé Hayward M.D. Organization Unknown Address [address] [place], [place] [phone] Phone Unavailable Care Team Providers Care County Engineer Name Role Phone David Hayward M.D. Unavailable [...] Active Allergic rhinitis (477.9, J30.9) Status: Active Medications Name Dates Details Warfarin [...] Refills: 1 Patric Membreno M.D.* Started 29-Jan-2014 [id number] GM Tube Losartan Potassium 100 MG Oral [...] Membreno On 07-Feb-2016 08:30 * Appointment; Provider: Jessee Khan On 10:30 * Appointment; Provider: Schedule Radiology On 09:00 Instructions * Instructions not documented Encounters Appointment; Vish Pettit Encounter Diagnosis: Problem not documented On 09:00 Appointment; Tejal Alvarenga Encounter Diagnosis: Problem not documented On 08:30 Appointment; Noé Hayward Encounter Diagnosis: Problem not documented On 10:30 Appointment; Noé Hayward Encounter Diagnosis: Problem not documented On 31-Aug-2015 10:30 Appointment; Noé Hayawrd Encounter Diagnosis: Problem not documented On 16-Aug-2015 [...]
--- OUTSIDE RECORDS SUMMARY | 2016-07-24 05:57 | XMS REPORT | Summary of Care ---
Author Author Noé Hayward M.D. Organization Unknown Address [address] [place], [place] [phone] Phone Unavailable Care Team Providers Care Bookbinding Machine Operator Name Role Phone David Hayward [...] Refills: 1 Patric Membreno M.D.* Started 29-Jan-2014 [id number] GM Tube Allergies and Adverse Reactions Name Dates Details Penicillins Status: Active Procedures Procedure Dates Details PROTIME PANEL 7000 Ordered:03-Sep-2014 Immunization Name Dates Details Immunizations not documented Social History Name Dates Details Smoking Status* Former smoker Vital Signs Date Test Result Details No Known Vitals to report Results Date Description Value Details Results not documented Plan of Care Planned Observations* Name Dates Details Planned Goals not documented Goal Planned Encounters* Appointment; Provider: Patric Membreno On 01-Feb-2015 08:30 * Appointment; Provider: Noé Hayward On 10-Dec-2014 10:00 Instructions * Instructions not documented Encounters Appointment; [...]
--- OUTSIDE RECORDS SUMMARY | 2016-07-24 05:57 | XMS REPORT | Summary of Care ---
Author Author Vish Pettit M.D. Unknown Address [address] [place], [place] [phone] Phone Unavailable Care Team Providers Care Polymer Scientist Name Role Phone Mainor Mario, David Unavailable Unavailable Vish Pettit M.D. Unavailable Unavailable Patrizia Membreno M.D. Unavailable [...] Refills: 1 Patric Membreno M.D.* Started 29-Jan-2014 [id number] GM Tube PEG-3350/Electrolytes 236 GM Oral Solution Reconstituted MIX AND DRINK DIRECTED PER COLONOSCOPY INSTRUCTIONS. * Quantity: 1 Refills: 0 Vish Pettit M.D.* Started 14-Dec-2014 [id number] ML Bottle Allergies and Adverse Reactions Name Dates Details Penicillins Status: Active Past Medical History Name Dates Details History of Pre-procedural examination (V72.84, Z01.818) Status: Resolved Procedures Procedure Dates Details Colonoscopy- Screening or Dx Ordered:14-Dec-2014 PROTIME PANEL 7000 Ordered:14-Dec-2014 Immunization Name Dates Details Immunizations not [...] ml/min (Better) Range: >60 EST GFR, NON-AFR [place] >60 ml/min (Better) Range: >60 Comments: EST GFR is reported in ml/min per 1.73 m2 of body surface area. For -French, please multiple result by 1.2.----- GLUCOSE 97 [...] Membreno On 01-Feb-2015 08:30 * Appointment; Provider: Vish Pettit On 31-Dec-2014 10:00 * Appointment; Provider: Tejal Alvarenga On 31-Dec-2014 09:30 Instructions * Instructions not documented Encounters Appointment; [...]
--- OUTSIDE RECORDS SUMMARY | 2016-07-24 05:57 | XMS REPORT | Summary of Care ---
Author Author Noé Hayward M.D. Organization Unknown Address [address] [place], [place] [phone] Phone Unavailable Care Team Providers Care Lapidary Apprentice Name Role Phone David Hayward M.D. Unavailable Unavailable Temi Mario, Patrizia Unavailable Unavailable Néo Hayward PP Unavailable Unavailable Unavailable Functional Status [...] Refills: 1 Patric Membreno M.D.* Started 29-Jan-2014 [id number] GM Tube Allergies and Adverse Reactions Name [...]
--- OUTSIDE RECORDS SUMMARY | 2016-07-24 05:57 | XMS REPORT | Summary of Care ---
Author Author Noé Hayward M.D. Organization Unknown Address [address] [place], [place] [phone] Phone Unavailable Care Team Providers Care Skin Lap Bonder Name Role Phone David Hayward M.D. Unavailable [...] Refills: 1 Patric Membreno M.D.* Started 29-Jan-2014 [id number] GM Tube Allergies and Adverse Reactions Name Dates Details Penicillins Status: Active Procedures Procedure Dates Details PROTIME PANEL 7000 Ordered:02-Aug-2014 CBC w/ Auto Diff 7150 Ordered:24-Aug-2014 Comprehensive Metabolic Panel 1212 Ordered:24-Aug-2014 LIPID PROFILE 1184 Ordered:31-Aug-2014 THYROID STIM. HORMONE 3602 Ordered:31-Aug-2014 Immunization Name Dates Details Immunizations not documented Social History Name Dates Details Smoking Status* Former smoker Vital Signs Date Test Result Details No Known Vitals to report Results Date Description Value Details 02-Aug-2014 14:36 PROTIME PANEL 7000 PROTIME 23.7 secs (Above high threshold) Range: 12.0-14.9 INR 2.16 (Better) Plan of Care Planned Observations* Name [...]
--- OUTSIDE RECORDS SUMMARY | 2016-07-24 05:58 | XMS REPORT | Summary of Care ---
Author Author Noé Hayward M.D. Organization Unknown Address [address] [place], [place] [phone] Phone Unavailable Care Team Providers Care Ring Cutter Lathe Operator Name Role Phone David Hayward M.D. [...] Refills: 1 Patric Membreno M.D.* Started 29-Jan-2014 [id number] GM Tube Allergies and Adverse Reactions Name Dates Details Penicillins Status: Active Procedures Procedure Dates Details LDH 1140 Ordered:03-Sep-2014 C REACTIVE PROTEIN, CRP 2029 Ordered:03-Sep-2014 ERYTHROCYTE SED RATE 7800 Ordered:03-Sep-2014 RHEUMATOID FACTOR, RA, Serum 2014 Ordered:03-Sep-2014 PROTIME PANEL 7000 Ordered:03-Sep-2014 Immunization Name Dates Details Immunizations not documented Social History Name Dates Details Smoking Status* Former smoker Vital Signs Date Test Result Details 03-Sep-2014 09:19 BP Systolic 148 mm[Hg] Status: BP Diastolic 78 mm[Hg] Status: Heart Rate 106 /min Status: Weight 221.25 lb Status: O2 SAT 96 % Status: Body Mass Index Calculated 30.01 kg/m2 Status: Body Surface Area Calculated 2.22 m2 Status: Results Date Description Value Details 01-Sep-2014 08:47 CBC w/ Auto Diff 7150 Comments: Fastin hours WBC 7.5 K/uL (Better) Range: 4.5-11.0 RBC 4.67 mil/uL (Better) Range: 4.20-5.40 HGB 14.6 g/dL (Better) Range: 14.0-18.0 HCT 41.0 % (Below low threshold) Range: 42.0-53.0 MCV 88.0 fL (Better) Range: 80.0-99.0 MCH 31.3 pg (Better) Range: 27.3-32.5 MCHC 35.6 % (Better) Range: 32.0-36.0 RDW 13.0 % (Better) Range: 11.6-14.8 PLATELETS 198 K/uL (Better) Range: 150-400 MPV 8.2 fL (Better) Range: 6.0-11.0 %NEUTRO 52.3 % (Better) Range: 37.0-80.0 %LYMPHS 32.7 % (Better) Range: 13.0-50.0 %MONO 7.3 % (Better) Range: 0.0-12.0 %EOS 4.7 % (Better) Range: 0.0-7.0 %BASO 0.8 % (Better) Range: 0.0-2.5 %MELISSA 2.2 % (Better) Range: 0.0-5.0 NEUTRO 3.9 K/uL (Better) Range: 2.0-6.9 LYMPHS 2.4 K/uL (Better) Range: 0.6-3.4 MONOS 0.5 K/uL (Better) Range: 0.0-0.9 EOS 0.4 K/uL (Better) Range: 0.0-0.7 BASO 0.1 K/uL (Better) Range: 0.0-0.2 08:50 PROTIME PANEL 7000 Comments: Fastin hours PROTIME 21.9 secs (Above high threshold) Range: 12.0-14.9 INR 1.95 (Better) 09:21 Comprehensive Metabolic Panel 1212 Comments: Fastin hours SODIUM 135 mmol/L (Better) Range: 133-144 POTASSIUM 3.9 mmol/L (Better) Range: 3.5-5.1 CHLORIDE 100 mmol/L (Better) Range: 98-110 CARBON DIOXIDE 27.3 mmol/L (Better) Range: 23.0-33.0 ANION GAP 8 mmol/L (Better) Range: 6-16 BUN 16 mg/dL (Better) Range: 7-18 CREATININE, SERUM 0.79 mg/dL (Better) Range: 0.43-1.13 BUN:CREATININE RATIO 20 (Better) EST GFR, >60 ml/min (Better) Range: >60 EST GFR, NON-AFR GABONESE >60 ml/min (Better) Range: >60 Comments: EST GFR is reported in ml/min per 1.73 m2 of body surface area. For -Zimbabwean, please multiple result by 1.2.----- GLUCOSE 90 mg/dL (Better) Range: 70-100 ALK PHOSPHATASE 74 U/L (Better) Range: 46-116 TOTAL BILIRUBIN 0.40 mg/dL (Better) Range: 0.20-1.00 AST 20 U/L (Better) Range: 8-35 ALT 31 U/L (Better) Range: 16-63 Comments: Please note new reference ranges. Effective 07/08/2014.----- ALBUMIN 3.5 g/dL (Better) Range: 3.4-5.0 TOTAL PROTEIN 7.0 g/dL (Better) Range: 6.4-8.2 A/G RATIO 1.0 units (Better) Range: 1.0-1.8 CALCIUM 8.6 mg/dL (Better) Range: 8.5-10.1 09:21 LIPID PROFILE 1184 Comments: Fastin hours CHOLESTEROL 214 mg/dL (Above high threshold) Range: <200 TRIGLYCERIDES 84 mg/dL (Better) Range: 30-200 HDL Cholesterol 42 mg/dL (Better) Range: >39 NON HDL CHOLESTEROL 172 (Better) CARDIAC RSK FACTOR 5.1 units (Above high threshold) Range: 4.4-5.0 LDL - CALCULATED 155 mg/dL (Above high threshold) Range: 0-130 09:30 THYROID STIM. HORMONE 3602 Comments: Fastin hours THYROID STIM. HORMONE 1.649 uIU/mL (Better) Range: 0.550-4.780 Comments: \[id number]\No established reference ranges for infants and children < 2 years of ageNo established reference ranges for infants and children <2 years of age----- 09:30 Testosterone 3102 Comments: Fastin hours TST 386 ng/dL (Better) Range: 241-827 Plan of Care Planned Observations* Name Dates [...]
--- OUTSIDE RECORDS SUMMARY | 2016-07-24 05:58 | XMS REPORT | Summary of Care ---
Author Author Noé Hayward M.D. Unknown Address [address] [place], [place] [phone] Phone Unavailable Care Team Providers Care Sales Office Coordinator Name Role Phone David Hayward M.D. [...] Dates Details PROTIME PANEL 7000 Ordered: 09-Jan-2016 Immunization Name Dates Details Immunizations not documented Family History Name Dates Details No pertinent family history Status: Active Social History Name Dates Details - Status: Name Dates Details Former smoker Vital Signs Date Test Result Details No Known Vitals to report Results Date Description Value Details 20-Feb-2016 11:02 PROTIME PANEL 7000 PROTIME 34.0 secs (Above high threshold) Range: 12.0-14.9 INR 3.33 Plan of Care Name Dates Details Planned Observations Planned Goals not documented Planned Encounters Appointment; Provider: Noé Hayward M.D. On 08-Aug-2016 10:00 Interventions Provided Labs/Procedures/Imaging* PROTIME PANEL 7000; To be Done: 20 Feb 2016 Instructions Name Dates Details Instructions not documented Encounters Appointment; Noé Hayward M.D. Encounter Diagnosis: Problem not documented On 10-Jan-2016 13:00 Appointment; Jessee Khan, PDarling Encounter Diagnosis: Problem not documented On 10:30 [...]
--- OUTSIDE RECORDS SUMMARY | 2016-07-24 05:58 | XMS REPORT | Summary of Care ---
Author Author Noé Hayward M.D. Organization Unknown Address [address] [place], [place] [phone] Phone Unavailable Care Team Providers Care Electronic Operator Name Role Phone David Hayward M.D. [...] Refills: 1 Patric Membreno M.D.* Started 29-Jan-2014 [id number] GM Tube Allergies and Adverse Reactions Name Dates Details Penicillins Status: Active Procedures Procedure Dates Details PROTIME PANEL 7000 Ordered: Immunization Name Dates Details Immunizations not documented Social History Name Dates Details Smoking Status* Former smoker Vital Signs Date Test Result Details No Known Vitals to report Results Date Description Value Details 14:40 PROTIME PANEL 7000 PROTIME 19.7 secs (Above high threshold) Range: 12.0-14.9 INR 1.70 (Better) Plan of Care Planned Observations* Name [...]
--- OUTSIDE RECORDS SUMMARY | 2016-07-24 05:58 | XMS REPORT | Summary of Care ---
Author Author Noé Hayward M.D. Organization Unknown Address [address] [place], [place] [phone] Phone Unavailable Care Team Providers Care Electrical Engineering Intern Name Role Phone David Hayward [...] Refills: 1 Patric Membreno M.D.* Started 29-Jan-2014 [id number] GM Tube Lisinopril 20 MG Oral Tablet take one tablet by mouth every day * Quantity: 90 Refills: 4 Noé Hayward M.D.* Started 16-Aug-2015 Active Allergies and Adverse Reactions Name Dates Details Penicillins Status: Active Past Medical History Name Dates Details History of Pre-procedural examination (V72.84, Z01.818) Status: Resolved Procedures Procedure Dates Details PROTIME PANEL 7000 Ordered:16-Aug-2015 ESOPHAGUS/ BARIUM SWALLOW Ordered: Immunization Name Dates Details Immunizations not [...]
--- OUTSIDE RECORDS SUMMARY | 2016-07-24 05:58 | XMS REPORT | Summary of Care ---
Author Author Noé Hayward M.D. Organization Unknown Address [address] [place], [place] [phone] Phone Unavailable Care Team Providers Care Youth Nutritional Monitor Name Role Phone David Hayward M.D. Unavailable [...] Refills: 1 Patric Membreno M.D.* Started 29-Jan-2014 [id number] GM Tube Allergies and Adverse Reactions Name [...]
--- OUTSIDE RECORDS SUMMARY | 2016-07-24 05:58 | XMS REPORT | Summary of Care ---
Author Author Noé Hayward M.D. Organization Unknown Address [address] [place], [place] [phone] Phone Unavailable Care Team Providers Care Residential Field Manager Name Role Phone David Hayward M.D. Unavailable [...] Refills: 1 Patric Membreno M.D.* Started 29-Jan-2014 [id number] GM Tube Allergies and Adverse Reactions Name [...] ml/min (Better) Range: >60 EST GFR, NON-AFR [place] >60 ml/min (Better) Range: >60 Comments: EST GFR is reported in ml/min per 1.73 m2 of body surface area. For -Uzbek, please multiple result by 1.2.----- GLUCOSE 90 [...]
--- OUTSIDE RECORDS SUMMARY | 2016-07-24 05:58 | XMS REPORT | Summary of Care ---
Author Author Noé Hayward M.D. Organization Unknown Address [address] [place], [place] [phone] Phone Unavailable Care Team Providers Care Control Officer Name Role Phone David Hayward M.D. Unavailable [...] Refills: 1 Patric Membreno M.D.* Started 29-Jan-2014 [id number] GM Tube Lisinopril 10 MG Oral Tablet TAKE ONE TABLET BY MOUTH EVERY DAY DIRECTED * Quantity: 30 Refills: 6 Noé Hayward M.D.* Started 16-Aug-2015 ActiveAzithromycin 250 [...] ml/min (Better) Range: >60 EST GFR, NON-AFR FINNISH >60 ml/min (Better) Range: >60 Comments: EST GFR is reported in ml/min per 1.73 m2 of body surface area. For -Nigerian, please multiple result by 1.2.----- GLUCOSE 97 [...]
--- OUTSIDE RECORDS SUMMARY | 2016-07-24 05:58 | XMS REPORT | Summary of Care ---
Author Author Noé Hayward M.D. Unknown Address [address] [place], [place] [phone] Phone Unavailable Care Team Providers Care Case Mgr Name Role Phone David Hayward M.D. Unavailable [...] Refills: 2 Mainor MarioNoé * Start Active Allergies and Adverse Reactions [...] smoker Vital Signs Date Test Result Details 10-Jan-2016 12:56 BP Systolic 128 mm[Hg] Status: Comments: Location: ; Position: BP Diastolic 76 mm[Hg] Status: Comments: Location: ; Position: Heart Rate 83 /min Status: Comments: Location: ; Weight 227.6 lb Status: Physical Findings 94 Status: Comments: O2 Saturation Body Mass Index Calculated 30.87 kg/m2 Status: Body Surface Area Calculated 2.25 m2 Status: Results Date Description Value Details 06-Jan-2016 13:03 PROTIME PANEL 7000 PROTIME 30.8 secs (Above high threshold) Range: 12.0-14.9 INR 2.94 13:18 XRay CHEST-PA & LAT Comments: Exam Date: 01/06/2016 12:57Dictation Date: 01/06/2016 13:18 X CHEST PA & LAT 13:32 ECG/ EKG Preop Electro CardioGram 13:28 Urinalysis, Reflex to Microscopic or Culture PRN 8005 pH 7.0 Range: 5.0-7.5 SP GRAVITY 1.010 Range: 1.010-1.030 APPEARANCE CLEAR Range: Clear COLOR YELLOW Range: Straw-Yellow PROTEIN NEGATIVE mg/dL Range: Negative-Trace GLUCOSE NEGATIVE mg/dL Range: Negative KETONE NEGATIVE mg/dL Range: Negative BILIRUB NEGATIVE Range: Negative BLOOD NEGATIVE Range: Negative UROBIL 0.2 EU/dL Range: 0.2-1.0 NITRITE NEGATIVE Range: Negative LEUK NEGATIVE Range: Negative 13:46 Comprehensive Metabolic Panel 1212 SODIUM 140 mmol/L Range: 133-144 POTASSIUM 4.0 mmol/L Range: 3.5-5.1 CHLORIDE 104 mmol/L Range: 98-110 CARBON DIOXIDE 26.9 mmol/L Range: 23.0-33.0 ANION GAP 9 mmol/L Range: 6-16 BUN 16 mg/dL Range: 7-18 CREATININE, SERUM 0.91 mg/dL Range: 0.70-1.30 BUN:CREATININE RATIO 18 EST GFR, >60 ml/min Range: >60 EST GFR, NON-AFR SAMOAN >60 ml/min Range: >60 Comments: EST GFR is reported in ml/min per 1.73 m2 of body surface area. ----- GLUCOSE 101 mg/dL (Above high threshold) Range: 70-100 ALK PHOSPHATASE 65 U/L Range: 46-116 TOTAL BILIRUBIN 0.40 mg/dL Range: 0.20-1.00 AST 20 U/L Range: 8-35 ALT 31 U/L Range: 16-63 ALBUMIN 3.5 g/dL Range: 3.4-5.0 TOTAL PROTEIN 6.9 g/dL Range: 6.4-8.2 A/G RATIO 1.0 units Range: 1.0-1.8 CALCIUM 8.9 mg/dL Range: 8.5-10.1 14:27 CBC w/ Auto Diff 7150 WBC 8.4 K/uL Range: 4.5-11.0 RBC 4.54 mil/uL Range: 4.20-5.40 HGB 14.2 g/dL Range: 14.0-18.0 HCT 41.4 % (Below low threshold) Range: 42.0-53.0 MCV 91.2 fL Range: 80.0-99.0 MCH 31.4 pg Range: 27.3-32.5 MCHC 34.4 % Range: 32.0-36.0 RDW 13.9 % Range: 11.6-14.8 PLATELETS 227 K/uL Range: 150-400 MPV 6.7 fL Range: 6.0-11.0 %NEUTRO 65.2 % Range: 37.0-80.0 %LYMPHS 23.8 % Range: 13.0-50.0 %MONO 6.4 % Range: 0.0-12.0 %EOS 2.1 % Range: 0.0-7.0 %BASO 0.6 % Range: 0.0-2.5 %MELISSA 1.9 % Range: 0.0-5.0 NEUTRO 5.5 K/uL Range: 2.0-6.9 LYMPHS 2.0 K/uL Range: 0.6-3.4 MONOS 0.5 K/uL Range: 0.0-0.9 EOS 0.2 K/uL Range: 0.0-0.7 BASO 0.1 K/uL Range: 0.0-0.2 Plan of Care Name Dates Details Planned Observations Planned Goals not documented Planned Encounters Appointment; Provider: Noé Hayward M.D. On 08-Aug-2016 10:00 Interventions Provided Medication Changes* Losartan Potassium 100 MG Oral Tablet - Renew Instructions Name [...]
--- OUTSIDE RECORDS SUMMARY | 2016-07-24 05:58 | XMS REPORT | Summary of Care ---
Author Author Noé Hayward M.D. Organization Unknown Address [address] [place], [place] [phone] Phone Unavailable Care Team Providers Care Boom Pump Operator Name Role Phone David Hayward M.D. [...] Refills: 1 Patric Membreno M.D.* Started 29-Jan-2014 [id number] GM Tube Allergies and Adverse Reactions Name Dates Details Penicillins Status: Active Procedures Procedure Dates Details Procedures not documented [...]
--- OUTSIDE RECORDS SUMMARY | 2016-07-24 05:58 | XMS REPORT | Summary of Care ---
Author Author Noé Hayward M.D. Organization Unknown Address [address] [place], [place] [phone] Phone Unavailable Care Team Providers Care Foreign Collection Clerk Name Role Phone David Hayward M.D. Unavailable [...] Refills: 1 Patric Membreno M.D.* Started 29-Jan-2014 [id number] GM Tube Allergies and Adverse Reactions Name Dates Details Penicillins Status: Active Past Medical History Name Dates Details History of Pre-procedural examination (V72.84, Z01.818) Status: Resolved Procedures Procedure Dates Details PROTIME PANEL 7000 Ordered:04-Feb-2015 Immunization Name Dates Details Immunizations not documented [...] Problem not documented On 08-Dec-2013 13:15 Appointment; oNé Hayward Encounter Diagnosis: Problem not documented On 18-Sep-2013 14:45 Appointment; Noé Hayward Encounter Diagnosis: Problem not documented On 20-Aug-2013 09:15 Appointment; Law [place] Encounter Diagnosis: Problem not documented On 29-Jul-2013 11:00
--- OUTSIDE RECORDS SUMMARY | 2016-07-24 05:59 | XMS REPORT | Summary of Care ---
Author Author Chaz Adrian M.D. Unknown Address [address] [place] [address] [place] [address] Phone Unavailable Care Team Providers Care Stenciler Name Role Phone David Hayward M.D. Unavailable [...] USE NEEDED * Quantity: 1 Refills: 1 Teim MarioPatric * Start 29-Jan-2014 Active 45 GM Tube Losartan Potassium 100 MG Oral Tablet take one tablet by mouth every day * Quantity: 90 Refills: 2 Noé Hayward M.D. * Start Active AmLODIPine Besylate 2.5 MG Oral Tablet ONE TABLET BY MOUTH EVERY DAY * Quantity: 90 Refills: 0 Noé Hayward M.D. * Start 06-Jun-2016 Active Saw [place] Oral Capsule * Refills: 0 * Start [...]
--- OUTSIDE RECORDS SUMMARY | 2016-07-24 05:59 | XMS REPORT | Summary of Care ---
Author Author Noé Hayward M.D. Organization Unknown Address [address] [place], [place] [phone] Phone Unavailable Care Team Providers Care Ferryboat Helper Name Role Phone David Hayward M.D. 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 Start 06-Jun-2016 Active Saw [place] Oral Capsule * Refills: 0 * Start [...] 0 Av Lou M.D. Start 30-Jun-2016 Active Allergies and Adverse Reactions Name Dates Details Penicillins (Allergy) Status: Active Past Medical History Name Dates Details History of Pre-procedural examination (V72.84, Z01.818) Status: Resolved Procedures Procedure Dates Details History of Excision Of Ankle Proliferative Bone History of Pulmonary Artery Embolectomy History of Knee Surgery Left History of Rotator Cuff Repair PROTIME PANEL 7000 Ordered: 16-Jul-2016 XRay CHEST-PA & LAT Ordered: 29-Jun-2016 Immunization Name Dates Details Immunizations not documented Family History Name Dates Details No pertinent family history Status: Active Social History Name Dates Details - Status: Name Dates Details Former smoker Vital Signs Date Test Result Details 16-Jul-2016 14:16 BP Systolic 134 mm[Hg] Status: [...] - URINE 4444 CYTOLOGY Specimen referred to [facility]. Report to follow. 30-Jun-2016 09:14 Urinalysis, [...] >60 ml/min Range: >60 EST GFR, NON-AFR MALDIVIAN >60 ml/min Range: >60 Comments: EST GFR [...] Details Planned Observations PROTIME PANEL 7000 On 23-Jul-2016 Intent Planned Goals not documented Planned Encounters [...]
--- OUTSIDE RECORDS SUMMARY | 2016-07-24 05:59 | XMS REPORT | Summary of Care ---
Author Author Chaz Adrian M.D. Unknown Address [address] [place] [address] [place] [address] Phone Unavailable Care Team Providers Care Oracle Ebs Developer Name Role Phone David Hayward M.D. 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 Quantity: 90 Mainor MarioNoé Start 10-Dec-2007 Active Amoxicillin 500 MG Oral Capsule TAKE 4 CAPSULES 1 HOUR PRIOR TO DENTAL APPOINTMENT. * Quantity: 12 Refills: 0 Noé Hayward M.D. Start 24-Jan-2009 Active Warfarin Sodium 2 MG [...] Refills: 2 Noé Hayward M.D. Start Active AmLODIPine Besylate 2.5 MG Oral Tablet ONE TABLET BY MOUTH EVERY DAY * Quantity: 90 Refills: 0 Noé Hayward M.D. Start 06-Jun-2016 Active Saw [place] Oral Capsule * Refills: 0 * Start [...] - URINE 4444 CYTOLOGY Specimen referred to [facility]. Report to follow. 30-Jun-2016 09:14 Urinalysis, [...] >60 ml/min Range: >60 EST GFR, NON-AFR TUVALUAN >60 ml/min Range: >60 Comments: EST GFR [...] Goals not documented Planned Encounters Appointment; Provider: Mikhail Duffy M.D. On 18-Jul-2017 11:00 Appointment; Provider: Jarad Villanueva M.D. On 06-Dec-2016 09:00 Interventions Provided Medication Changes* Warfarin Sodium 3 MG Oral Tablet - Start Instructions Name Dates Details Instructions not documented Encounters Appointment; Jessee Lemus P.A. Encounter Diagnosis: Problem not documented On 17-Jul-2016 11:30 Appointment; Noé Hayward M.D. Encounter Diagnosis: [...]
--- OUTSIDE RECORDS SUMMARY | 2016-07-24 05:59 | XMS REPORT | Summary of Care ---
Author Author Noé Hayward M.D. Organization Unknown Address [address] [place], [place] [phone] Phone Unavailable Care Team Providers Care Paste Thinner Name Role Phone David Hayward M.D. Unavailable [...] Quantity: 90 Refills: 0 Mainor Mario, Noé Hernandez * Start 06-Jun-2016 Active Hydrocortisone 2.5 % [...] Av Lou M.D. * Start 30-Jun-2016 Active Saw [place] Oral Capsule * Refills: 0 * Start 14-Jun-2016 Active Allergies and Adverse Reactions Name Dates [...] - URINE 4444 CYTOLOGY Specimen referred to [facility]. Report to follow. 30-Jun-2016 09:14 Urinalysis, [...] of Care Name Dates Details Planned Observations Comprehensive Metabolic Panel 1212 On 05-Jul-2016 Intent Urinalysis, Reflex to Microscopic or Culture PRN 8005 On 05-Jul-2016 Intent XRay CHEST-PA & LAT On 16-Jul-2016 Intent Planned Goals not documented Planned Encounters Appointment; Provider: Jarad Villanueva M.D. On 06-Dec-2016 09:00 Appointment; Provider: Noé Hayward M.D. On 21-Aug-2016 09:00 Appointment; Provider: Cahz Adrian M.D. On 19-Jul-2016 09:45 Appointment; Provider: Noé Hayward M.D. On 16-Jul-2016 14:15 Interventions Provided Labs/Procedures/Imaging* CBC w/ Auto Diff 7150; Done: Jul 16 2016 1:20PM Instructions Name [...]
--- OUTSIDE RECORDS SUMMARY | 2016-07-24 05:59 | XMS REPORT | Summary of Care ---
Author Author Noé Hayward M.D. Unknown Address [address] [place], [place] [phone] Phone Unavailable Care Team Providers Care Microsoft Bi Consultant Name Role Phone David Hayward M.D. [...] Noé Hayward M.D. * Start 06-Jun-2016 Active Allergies and Adverse [...] On 08-Aug-2016 10:00 Interventions Provided Medication Changes* AmLODIPine Besylate 2.5 MG Oral Tablet - Start * Amoxicillin 500 MG Oral Capsule - Renew Instructions Name Dates Details Instructions [...]
--- OUTSIDE RECORDS SUMMARY | 2016-07-24 05:59 | XMS REPORT | Summary of Care ---
Author Author Av Lou M.D. Organization Unknown Address Unknown Phone Unavailable Care Team Providers Care Regulatory Law Specialist Name Role Phone David Hayward M.D. Unavailable [...] Hayward M.D. * Start 06-Jun-2016 Active Saw [place] Oral Capsule * Refills: 0 * Start [...] daily * Quantity: 14 Refills: 0 Av oLu M.D. Start 30-Jun-2016 End 07-Jul-2016 Active Phenazopyridine [...] (Above high threshold) Range: 12.0-14.9 INR 2.64 30-Jun-2016 09:14 Urinalysis, Reflex to Microscopic or [...] Hayward M.D. On 16-Jul-2016 14:15 Interventions Provided Medication Changes* Phenazopyridine HCl - 200 MG Oral Tablet - Start * Sulfamethoxazole-Trimethoprim 800-160 MG Oral Tablet - Start Labs/Procedures/Imaging* Urinalysis, Reflex to Microscopic or Culture PRN 8005; Done: Jun 30 2016 9:09AM Instructions Name Dates Details Instructions not documented [...]
--- OUTSIDE RECORDS SUMMARY | 2016-07-24 05:59 | XMS REPORT | Summary of Care ---
Author Author Noé Hayward M.D. Organization Unknown Address [address] [place], [place] [phone] Phone Unavailable Care Team Providers Care Asbestos Pipe Supervisor Name Role Phone Mainor Mario, David Unavailable [...] Refills: 1 Patric Membreno M.D.* Started 29-Jan-2014 [id number] GM Tube Lisinopril 10 MG Oral Tablet TAKE ONE TABLET BY MOUTH EVERY DAY DIRECTED * Quantity: 30 Refills: 6 Noé Hayward M.D.* Started 16-Aug-2015 Active Allergies [...] ml/min (Better) Range: >60 EST GFR, NON-AFR [place] >60 ml/min (Better) Range: >60 Comments: EST GFR is reported in ml/min per 1.73 m2 of body surface area. For -Venezuelan, please multiple result by 1.2.----- GLUCOSE 97 [...]
[2016-07-24 06:25] LABS: BASOPHILS % (AUTO) 0.5 % (0-2); EOSINOPHILS # (AUTO) 0.2 T/MM3 (0-0.5); HGB - HEMOGLOBIN 14.2 GM/DL (13.5-17.5); IMMATURE GRANULOCYTE # (AUTO) 0.02 T/MM3 (0.00-0.03); IMMATURE GRANULOCYTE % (AUTO) 0.2 % (0.0-0.5); LYMPHOCYTES # (AUTO) 2.7 T/MM3 (1-4.8); LYMPHOCYTES % (AUTO) 33.3 % (23-45); MEAN CORPUSCULAR VOLUME 93.9 UM3 (80-100); MEAN PLATELET VOLUME 10.5 UM3 (9.4-12.4); MONOCYTES # (AUTO) 0.8 T/MM3 (0-0.8); MONOCYTES % (AUTO) 9.3 % (0-9.0); NEUTROPHILS #(AUTO)-ABSOLUTE 4.4 T/MM3 (1.8-7.7); NEUTROPHILS % (AUTO) 54.7 % (33-66); RED BLOOD COUNT 4.58 M/MM3 (4.50-5.90); WBC - WHITE BLOOD COUNT 8.1 T/MM3 (4.5-11.0)
[2016-07-24 06:31] LABS: INR 1.09 (0.76-1.04); PROTHROMBIN TIME 11.9 SEC (9.31-12.49)
[2016-07-24 06:32] LABS: PTT 28.1 SEC (24-36)
[2016-07-24 06:33] LABS: ANION GAP 12 MEQ/L (5-15); BUN/CREATININE RATIO 23 RATIO (6-26); CALCIUM 9.2 MG/DL (8.4-10.2); CHLORIDE 107 MEQ/L (98-107); CO2 - CARBON DIOXIDE 27 MEQ/L (22-30); CREATININE 0.7 MG/DL (0.8-1.5); GLOMERULAR FILTRATION RATE 111; GLUCOSE 96 MG/DL (75-110); POTASSIUM 4.4 MEQ/L (3.6-5); SODIUM 146 MEQ/L (134-144)
[2016-07-24] MEDS ORDERED: MULT-1198 (06:51)
[2016-07-24] MEDS ORDERED: LR 1,000 ML IV SCH ×2 (07:00→08:45)
--- NOTE | 2016-07-24 07:15 | ANESPREOP ---
Anesthesia Record Date and Time DATE: 07/24/16 TIME: 07:06 Pre-Op Diagnosis BLADDER TUMOR Proposed Surgical Procedure BLADDER SURGERY NPO since: 189907/23/16 Allergies: Coded Allergies: Penicillins (Verified Allergy, Mild, FLUSHING, 07/24/16) Ht/Wt/BMI Height: 5 ' 11.00 " Weight: 104.500 kg BMI: 32.1 kg/m2 Vital Signs Date Time Temp Pulse Resp B/P Pulse Ox O2 Delivery O2 Flow Rate FiO2 07/24/16 06:07 98.1 87 13 164/80 95 Room Air Medications Inpatient Medications Current Medications Medications (Trade) Dose Ordered Sig/Alli Start Time Stop Time Status Last Admin Dose Admin Lactated Ringer's (Lactated Ringers) 1,000 ml @ 30 mls/hr Q24H 07/24/16 07:00 07/24/16 06:32 30 MLS/HR Alclometasone Dipropionate (Alclometasone Dipropionate) 15 Gm Cream..g., 1 UNIT TOP BID PRN for TOSHIA, (Reported) Last Taken: on Unknown Date & Time Amlodipine Besylate (Amlodipine Besylate ) 2.5 Mg Tablet, 1 TAB PO DAILY, (Reported) Last Taken: on 07/23/16 0900 Amoxicillin (Amoxicillin) 500 Mg Capsule, 4 CAP PO ASD, (Reported) Last Taken: on Unknown Date & Time Losartan Potassium (Losartan Potassium) 100 Mg Tablet, 100 MG PO DAILY, (Reported) Last Taken: on 07/23/16 0900 Multivitamin (Multi Vitamin Daily) 1 Each Tablet, (Reported) Last Taken: on 07/23/16 0900 Saw Madison Fruit (Saw Madison) 450 Mg Capsule, 1 CAP PO DAILY, (Reported) Last Taken: on 07/23/16 0900 Warfarin Sodium (Warfarin Sodium) 3 Mg Tablet, 1 TAB PO DAILY, (Reported) Last Taken: on 07/18/16 Currently on Beta Whitney: No Medical/Surgical History Anesthesia PMH: Reports: *Dyspnea (with exertion, RLL Lobectomy d/t PE in 2001) , *Hypertension, Cancer (BLADDER CANCER), Hyperlipidemia, Murmur, Other (CAD, HC APR 2014 - NO STENT, BPH), Valvular Disease (MILD-MODERATE AORTIC STENOSIS, AV 1.5cm2), Denies: *Diabetes, Anesthesia Reactions (NO AIRWAY ISSUES), Arthritis, Blood Transfusion Reac, Clotting Problems, Glaucoma, Malignant Hyperthermia, Renal Disease, Sleep Apnea, Thyroid Disease Smoking Status: Former smoker (QUIT 1989) Has pt. smoked today?: No Substance Use Type: does not use Alcohol Intake: a few times a month Past Surgical History Orthopedic Surgeries: Abdominal Surgeries: Yes - HERNIA REPAIR Genitourinary Surgeries: Cardiac Surgeries: Endocrine Surgeries: Reproductive Surgeries: Neurological Surgeries: Ear Surgeries: Nose Surgeries: Throat Surgeries: Other Surgeries: Yes - R LOWER LUNG REMOVED FOR BLOOD CLOT Anesthesia Adverse Reactions: FOUND none Family Hx of Anesthesia Advers: none Hx of Motion Sickness: No Pertinent Findings Laboratory Tests 07/24/16 06:07 Test 07/24/16 06:07 Activated Partial Thromboplast Time 28.1SEC (24-36) Prothromb Time International Ratio 1.09 (0.76-1.04) Physical Exam Respiratory: Lungs clear Cardiovascular: FOUND Regular rate, rhythm Airway Assessment Mallampati Score: III TMD: 3 Fingerbreadths Neck Extension: Fair Teeth: Chipped Teeth/Crowns Overall Assessment: May Be Diff Intubation ASA: 3 Plan Anesthesia Plan: TIVA, LMA Discussion Discussed risks/options/alternatives of anesthesia and questions answered. Patient consents. Nursing pain assessment noted. Present: Spouse Attestation Statement Prior to the delivery of any anesthetic medication, I examined the patient, developed the plan, obtained the patient's consent and discussed the risk and benefits of the procedure with the patient/guardian. LING BERRIOS [employer] INSTRU[employer] STUDENT Jul 24, 2016 07:12
[2016-07-24] MEDS ORDERED: PROPOFOL 200mg 20 ML IV ONE (07:23)
[2016-07-24] MEDS ORDERED: SALINE FLUSH 10ml SYRINGE ONE (07:24)
[2016-07-24] MEDS ORDERED: PHENYLEPHRINE 10mg/ml INJECTION ONE (07:24)
[2016-07-24] MEDS ORDERED: KETAMINE 500mg/10ml INJECTION ONE (07:38)
[2016-07-24] MEDS ORDERED: FENTANYL 100mcg/2ml INJECTION ONE (07:38)
[2016-07-24] MEDS ORDERED: ROCURONIUM 50mg/5ml INJECTION IV ONE (07:38)
[2016-07-24] MEDS ORDERED: MIDAZOLAM 2mg/2ml INJECTION ONE (07:42)
[2016-07-24] MEDS ORDERED: IOHEXOL 300 MG/ML 50ml INJECTION ONE (07:57)
[2016-07-24] MEDS ORDERED: VANCOMYCIN 1 G in NORMAL SALINE 250 ML IV ONE (08:00)
[2016-07-24] MEDS ORDERED: MITOMYCIN IV ONE (08:30)
[2016-07-24] MEDS ORDERED: NORMAL SALINE IV ONE (08:30)
[2016-07-24] MEDS ORDERED: GLYCOPYRROLATE 0.4mg/2ml INJECTION ONE (08:31)
[2016-07-24] MEDS ORDERED: ONDANSETRON 4mg/2ml INJECTION ONE (08:31)
[2016-07-24] MEDS ORDERED: NEOSTIGMINE 10mg/10ml INJECTION ONE (08:34)
[2016-07-24] MEDS ORDERED: MITOMYCIN BLADIN ONE (08:40)
[2016-07-24] MEDS ORDERED: NORMAL SALINE BLADIN ONE (08:40)
[2016-07-24] MEDS ORDERED: MORPHINE 10mg/ml vl INJECTION IV PRN (08:45)
[2016-07-24] MEDS ORDERED: ONDANSETRON 4mg/2ml INJECTION IV PRN (08:45)
[2016-07-24] MEDS ORDERED: HYDROCODONE/APAP 5 mg/325 mg TABLET PO PRN (08:45)
[2016-07-24] MEDS ORDERED: BELLADONNA-OPIUM 16.2-60mg SUPP RECTALLY PRN (08:45)
--- NOTE | 2016-07-24 09:00 | NUR ---
PACU PATIENT POSITIONED TO LEFT SIDE PER ORDER, CHEMO AGENT IN BLADDER UPON ADMISSION TO PACU FROM OR PER DR. GARCES. PER REPORT FROM GRIFFIN RIZVI RN, CHEMO PLACED AT 0840. WILL CONTINUE TO MONITOR.
[2016-07-24] MEDS ORDERED: PROPOFOL 500mg 0 ML IV ONE (09:04)
[2016-07-24] MEDS ORDERED: LIDOCAINE 2% (20mg/ml) 5ml PF SDV ONE (09:05)
[2016-07-24] MEDS ORDERED: PHEN95TA44 PO (09:12)
--- NOTE | 2016-07-24 09:15 | NUR ---
PACU PATIENT POSITIONED TO STOMACH IN BED AT THIS TIME. WILL CONTINUE TO MONITOR. HOWELL REMAINS CLAMPED, IV FLUIDS NOT RUNNING AT THIS TIME.
--- NOTE | 2016-07-24 09:32 | NUR ---
PACU PATIENT POSITIONED TO RIGHT SIDE AT THIS TIME. STATES HE FEELS "PRESSURE" BUT NO PAIN. WILL CONTINUE TO MONITOR.
--- NOTE | 2016-07-24 09:50 | NUR ---
PACU HOWELL UNCLAMPED HOWELL CATHETER UNCLAMPED AT THIS TIME. WILL CONTINUE TO MONITOR.
--- NOTE | 2016-07-24 09:53 | ANESPO ---
Post-Op Note Date 07/24/16 Time: 09:53 Status Pt Participated in Evaluation: Pt participated in person Vital Signs Date Time Temp Pulse Resp B/P Pulse Ox O2 Delivery O2 Flow Rate FiO2 07/24/16 08:53 97.0 111 13 159/72 100 Mask 6.00 Respiratory Function: Airway patent Cardiovascular Function: Regular pulse Mental Status: Alert/oriented Pain Level Intensity: 3 Hydration: IV infusing Complications during Recovery None apparent Follow-Up Instructions Instructions Per Surgeon NERY MARTI CRNA Jul 24, 2016 09:53
--- NOTE | 2016-07-24 10:00 | NUR ---
PACU DC CATHETER HOWELL CATHETER EMPTIED OF 275 ML PURPLE/BROWN COLORED URINE. HOWELL THEN DC'D PER ORDER. WASTE DISCARDED PER PROTOCOL USING PRECAUTIONS. WILL CONTINUE TO MONITOR.
--- NOTE | 2016-07-24 10:04 | DI ---
Indication: ITS.REASON: ZHAO RETRO PROCEDURE: RF RETROGRADE PYELOGRAM BILAT.: Encounter: Initial Comparison: None Findings: 15 fluoroscopic spot images are submitted for interpretation. Images show retrograde injection of contrast into the left renal collecting system with normal-appearing calyces. Left ureter shows no obvious filling defect and is of normal caliber. Retrograde injection of contrast into the right ureter and renal collecting system shows attenuation of the superior pole calyces but no obvious filling defect or mass. Impression: Fluoroscopy as above. Please refer to the dictated procedural note for further details. Fluoroscopy time is 52 seconds. Fluoroscopy dose is 2590 mRad. .
--- NOTE | 2016-07-24 11:34 | NUR ---
STATUS B & O SUPPOSITORY ADMINISTERED AT THIS TIME PER ORDER. PATIENT UNABLE TO VOID AND C/O DISCOMFORT TO BLADDER. WILL CONTINUE TO MONITOR.
--- NOTE | 2016-07-24 11:37 | OPNOTEF ---
DATE OF OPERATION: 07/24/2016 PREOPERATIVE DIAGNOSES Bladder tumor, obstructive BPH and aortic stenosis. POSTOPERATIVE DIAGNOSIS Bladder tumor, obstructive BPH and aortic stenosis. OPERATION PERFORMED Cystoscopy with bilateral retrograde pyelogram and bladder biopsy with transurethral resection of large bladder tumor 5-7 cm in area involved with the tumor. Also postop mitomycin-C bladder instillations. SURGEON Chaz Adrian MD ANESTHESIA General endotracheal INDICATION Mr. Sabillon is a 75-year-old man who was being evaluated for increasing prostatism. During the evaluation, he was found to have a large shallow papillary tumor around the left ureteral orifice extending into the trigone and bladder neck in the left lateral wall. Urine cytology was positive. The patient was brought in for resection of the bladder tumor and retrograde pyelogram and chemotherapy bladder instillation. DESCRIPTION OF PROCEDURE The patient was taken to the cystoscopy suite and, under general endotracheal anesthesia, the patient was placed in dorsal lithotomy position and prepped and draped in the usual fashion for a cystoscopic procedure. Because of aortic stenosis, he received 1 g of vancomycin prior to the procedure. A 21 [place] cystoscope was inserted into the bladder and bladder was thoroughly inspected with 30- and 70-degree angle lens and confirmed the bladder tumor as described. It is approximately 5-7 cm in the area of bladder that is involved. Ureteral orifices are normal and bladder is heavily trabeculated and bladder outlet is obstructing from a medium-size prostate gland. Under fluoroscopy, bilateral retrograde pyelograms were taken with a 5-[place] open-ended catheter and found normal upper tracts without evidence of obstruction, filling defects or hydronephrosis. Bladder was then biopsied at the margin around the left ureteral orifice. The cystoscope was then removed and urethra was calibrated with 30-[place] David sound. A 27-[place] resectoscope was then inserted and using bipolar resecting loop the tumor was vaporized with the cutting current around the ureteral orifice to spare the orifice. We then resected the tumor away from the orifice. Some of the edematous mucosa was further vaporized with the cutting current. Hemostasis was obtained with coagulation. Resection was performed in the posterior wall just medial to the left ureteral orifice and superior to the orifice as well as down onto the trigone and bladder neck and the left lateral wall. Earth Burner specimens were able to be spared from cauterization effect and retrieved with the Ellik. After the resection and complete evacuation of the specimen and adequate coagulation and hemostasis, the resectoscope was removed and an 18 [place] Lux catheter was inserted. 40 mg of mitomycin-C in 40 cc solution was instilled in the bladder through the catheter. Catheter was clamped and a drainage bag was attached and the patient was taken to the recovery room in stable condition. KARI
--- NOTE | 2016-07-24 12:20 | NUR ---
STATUS BLADDER SCAN PERFORMED DUE TO PATIENT INABILITY TO VOID. 590 ML NOTED ON SCAN
[2016-07-24] MEDS ORDERED: LIDOCAINE JELLY 2% 30ml TUBE ONE (12:24)
--- NOTE | 2016-07-24 12:55 | NUR ---
STATUS 18 GAUGE HOWELL CATHETER INSERTED AT THIS TIME USING STERILE TECHNIQUE. 650 ML MAHSA COLORED URINE IMMEDIATELY RECEIVED ON RETURN. PATIENT STATES RELIEF OF PRESSURE.
--- NOTE | 2016-07-24 13:15 | NUR ---
STATUS PATIENT DISMISSED TO HOME. DISCHARGE INSTRUCTIONS AND HOWELL CATHETER CARE AND DC INSTRUCTIONS EXPLAINED TO PATIENT AND PATIENT SPOUSE. BOTH VERBALIZE UNDERSTANDING
== END 2016-07-24 13:15 | disposition home or self-care (01) ==
LOC: SCU 05:49
PROVIDERS: ATTEND Specialist
DX: D09.0 Carcinoma in situ of bladder (principal); N30.80 Other cystitis without hematuria; R82.8 Abnormal findings on cytological and histological examination of urine; N40.1 Benign prostatic hyperplasia with lower urinary tract symptoms; N13.8 Other obstructive and reflux uropathy; I35.0 Nonrheumatic aortic (valve) stenosis; Z79.01 Long term (current) use of anticoagulants; I50.9 Heart failure, unspecified; J30.9 Allergic rhinitis, unspecified; Z87.891 Personal history of nicotine dependence; E78.5 Hyperlipidemia, unspecified; I10 Essential (primary) hypertension; Z86.711 Personal history of pulmonary embolism
CPT/HCPCS: 36415; 52240; 74420; 80048; 85025; 85610; 85730; A9270; J2250; J2370; J2405; J2704; J2710; J3010; J3370; J7050; J7120; J9280; Q9967